=== PATIENT | female | born 1950 | race Caucasian/White ===

== ENCOUNTER 2022-05-11 13:30 | Outpatient (RCR) | payer MEDICARE, SELFPAY ==
--- NOTE | 2022-05-04 15:57 | PCM.WC.HP ---
History of Present Illness Date of Service: 05/04/22 Chief Complaint: Non-healing ulcer on left anterior leg History of Wound: Patient is a 71-year-old female who presents today with a left anterior leg ulcer that she acquired in December when she hit her leg on a pallet. She showed it to her primary care a month or 2 later and was told that it would heal eventually. Her prior authorization nurse thought couple weeks ago and thought it looked infected and placed her on an antibiotic, which she has completed, but does not know what the antibiotic was. She has been putting antibiotic ointment on it periodically and occasionally lets it scab over. 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 History of throat surgery, not thyroid. She denies any fever, chills, nausea, or vomiting. She states she has a good appetite. Progress of Wound: Left anterior leg ulcer is small but has some depth to it. [facility] Medical History (Reviewed 05/04/22 @ 16:24 by Yarelis Cavanaugh FELLMONGERING MACHINE OPERATOR, FELLMONGERING MACHINE OPERATOR-C) Gallbladder abscess Home Medications Trulicity 4.5 mg/0.5 mL subcutaneous pen injector (dulaglutide) 4.5 mg (0.5 mL) subcut QWEEK #2 mL 04/27/22 [Rx Last Taken Unknown] carvedilol 25 mg tablet mg PO 04/27/22 [History Last Taken Unknown] duloxetine 30 mg capsule,delayed release 90 mg PO 04/27/22 [History Last Taken Unknown] flash glucose scanning reader (FreeStyle Xena 2 [place]) #1 ea 04/27/22 [Rx Last Taken Unknown] flash glucose sensor (FreeStyle Xena 2 Sensor kit) #2 ea 04/27/22 [Rx Last Taken Unknown] insulin aspart U-100 100 unit/mL (3 mL) subcutaneous pen (Novolog Flexpen U-100 Insulin aspart) 1 sliding scale dose subcut USEASDIRECTD 04/27/22 [History Last Taken Unknown] insulin glargine 100 unit/mL (3 mL) subcutaneous pen (Lantus Solostar U-100 Insulin) unit subcut 04/27/22 [History Last Taken Unknown] meloxicam 7.5 mg tablet mg PO 04/27/22 [History Last Taken Unknown] ropinirole 1 mg tablet mg PO 04/27/22 [History Last Taken Unknown] simvastatin 5 mg tablet 5 mg PO DAILY 04/27/22 [History Last Taken Unknown] spironolactone 50 mg tablet mg PO 04/27/22 [History Last Taken Unknown] Allergy/AdvReac Type Severity Reaction Status Date / Time Penicillins Allergy Intermediate Swelling Verified 04/27/22 09:05 hydromorphone [From Dilaudid] AdvReac Severe Other Verified 04/27/22 09:05 acetaminophen [From Vicodin] AdvReac Intermediate Vomiting Verified 04/27/22 09:05 ciprofloxacin [From Cipro] AdvReac Intermediate headache Verified 04/27/22 09:05 hydrocodone [From Vicodin] AdvReac Intermediate Vomiting Verified 04/27/22 09:05 Family History (Reviewed 05/04/22 @ 16:24 by Yarelis Cavanaugh FELLMONGERING MACHINE OPERATOR, FELLMONGERING MACHINE OPERATOR-C) Other Alcohol abuse Arthritis Cancer Diabetes Heart disease Hypertension Surgical History (Reviewed 05/04/22 @ 16:24 by Yarelis Cavanaugh FELLMONGERING MACHINE OPERATOR, FELLMONGERING MACHINE OPERATOR-C) H/O knee surgery H/O tubal ligation History of arthroscopic knee surgery History of left shoulder replacement Previous back surgery Social History (Reviewed 05/04/22 @ 16:24 by Yarelis Cavanaugh FELLMONGERING MACHINE OPERATOR, FELLMONGERING MACHINE OPERATOR-C) Smoking Status: Former smoker alcohol intake: current alcohol intake frequency: 0-2 drinks per day substance use type: does not use what type of physical activity do you participate in: none ROS Constitutional Constitutional: Reports weight loss; Denies fever(s) or frequent falls Eyes Eyes: Reports none ENT HEENT: Reports systems reviewed and no addt'l complaints, except as documented Cardiovascular Cardiovascular: Denies chest pain or dyspnea Respiratory/Chest Respiratory/Chest: Denies cough or dyspnea Gastrointestinal Gastrointestinal: Reports none Musculoskeletal Musculoskeletal: Reports none Integumentary Integumentary: Reports skin ulcer Neurologic Neurologic: Reports systems reviewed and no addt'l complaints, except as documented Psychiatric Psychiatric: Reports systems reviewed and no addt'l complaints, except as documented Endocrine Endocrinology: Reports none Allergic/Immunologic Allergic/Immunologic: Reports none Physical Exam Const alert General Appearance: cooperative HEENT normocephalic Eyes PERRL Resp normal respiratory effort and clear to auscultation bilaterally Effort and Inspection: able to speak in complete sentences Cardio regular rate and regular rhythm Peripheral Pulses: dorsalis pedis pulses present bilateral 2+ GI soft to palpation and non-tender Extremity normal capillary refill Skin Skin Narrative: +2 edema bilateral legs Neuro oriented x3 Psych thought process normal and cooperative Debridement Note Debridement Note Wound debrided: anterior leg ulcer Laterality: Left Type of Debridement: Excisional debridement Anesthesia Used: 5% Lidocaine Gel Depth: Down to and including healthy tissue and in the subcutaneous layer Percentage of wound debrided: 100 Instrument Used: 3mm curette Severity: Fat Layer Exposed Amount of bleeding with debridement: Mild Bleeding Controlled with: Compression and gauze Patient tolerated procedure: Patient tolerated procedure well Post-Debridement Measurements and Additional Note: Post-Debridement Measurements/Treatment HAZEL - Nurse 1 - General Ulcer Assessment Start: 05/04/22 13:01 Freq: Status: Active Protocol: AJ Activity Type Activity Date Activity User E-sign Co-sign Detail Recorded Client Recorded Date Recorded By Document 05/04/22 13:02 MARILY [id number] 05/04/22 13:18 MARILY 05/04/22 13:02 HAZEL - Today's Visit Information Type of service Initial Visit Arrival Mode Ambulatory Patient Identification Verified (Name & Yes ) Patient Requires Transmission-Based No Precautions Safety Precautions NA Pain Scale: 0-10 Numeric Is Patient Pain Free? Yes HAZEL - Nurse 1 - General Ulcer Measurement Start: 05/04/22 13:01 Freq: Status: Active Protocol: Activity Type Activity Date Activity User E-sign Co-sign Detail Recorded Client Recorded Date Recorded By Document 05/04/22 13:02 MARILY [id number] 05/04/22 13:18 MARILY 05/04/22 13:02 Wound Center Nurse 1 #1L adam -Combined with other wound No -Current Size (cm) - Length 0.3 -Current Size (cm) - Width 1 -Current Size (cm) - Depth 0.2 -Total Square Cm 0.3 -Date of Last Picture (Recall this 05/04/22 field) -Photo Taken Yes -Tunneling No -Undermining/Tunneling No -Circular Undermining No -Change in Wound Grade/Stage No -Exudate Amt Medium -Exudate Type Serosanguineous -Wound Margin Distinct, Outline Attached -Granulation Amt None Present (0 %) -Granulation Quality N/A -Slough/Fibrin No -Necrosis Amt Large (67-100%) -Necrotic Tissue Type Adherent Slough -Structure Exposed N/A -Texture (Rachel-wound Skin Appearance) No Abnormality, Assessed -Moisture (Rachel-wound Skin Appearance) No Abnormality, Assessed -Color (Rachel-wound Skin Appearance) No Abnormality, Assessed -Temperature (Rachel-wound Skin No Abnormality Appearance) (Pt Warm) -Tenderness on Palpation (Rachel-wound No Skin Appearance) -Ulcer Cleansing Soap and Water -Foul Odor after Cleansing No -Anesthetic Used 5% Lidocaine Gel Lower Limb Edema Present No Right Calf (cm) 54 Right Ankle (cm) 30 Point of measurement (cm from the medial 53 instep) Left Ankle (cm) 32 WC - Nurse 2 - General Ulcer CM Notes Start: 05/04/22 13:01 Freq: Status: Active Protocol: Activity Type Activity Date Activity User E-sign Co-sign Detail Recorded Client Recorded Date Recorded By Document 05/04/22 13:43 MW [id number] 05/04/22 13:52 MW 05/04/22 13:43 Wound Center Nurse 2 #1L adam -Time 13:44 -Correct Patient Yes -Correct Side, Site, Position Yes -Correct Procedure Yes -Procedure Performed Yes -Type of Procedure Debridement -Clinical Debridement Subcutaneous -Tissue Removed Subcutaneous -Post Debridement (cm) - Length 0.6 -Post Debridement (cm) - Width 1.0 -Post Debridement (cm) - Depth 1.2 -Total Square (Post) (cm) 0.60 -Area of Debridement (cm) - Length 0.6 -Area of Debridement (cm) - Width 1.0 -Total Square (Area) (cm) 0.60 -Tunneling No -Undermining/Tunneling No -Circular Undermining No -Wound/Ulcer Outcome Not Healed -Ulcer Cleansing Rinsed/ Irrigated with Saline -Foul Odor after Cleansing No -Bioengineered Tissue No -Bleeding Controlled with Pressure -Treatment Response Procedure Tolerated Well -Offloading No -Debridement - Subq, 1st 20sq cm Yes Pain Scale: 0-10 Numeric Is Patient Pain Free? Yes HAZEL - Nurse 3 - General Ulcer D/C NN Start: 05/04/22 13:01 Freq: Status: Active Protocol: Activity Type Activity Date Activity User E-sign Co-sign Detail Recorded Client Recorded Date Recorded By Document 05/04/22 14:02 MW [id number] 05/04/22 14:03 MW 05/04/22 14:02 Wound Care Nurse 3 #1L adam -Ulcer Cleansing Rinsed/ Irrigated with Saline -Foul Odor after Cleansing No -Negative Pressure Wound Therapy N/A -Primary Dressing Applied Promogran Leora Matter -Primary Dressing Covered/Secured with Dry Gauze, Secured with Tape -Promogran Leora Matter 1 Left -Lotion applied to leg before No compression wrap -Tubular Bandage Single Layer -Size of Tubigrip Used Size F -Size F ($) 1 Treatment Response Procedure Tolerated Well Pain Scale: 0-10 Numeric Is Patient Pain Free? Yes Teaching: Wound Center Dressing Your Wound -Person Taught Patient -Teaching Method Discussion, Demonstration -Response to teaching Verbalize understanding WC - Visit Discharge Discharge Condition Stable Ambulatory Status Ambulatory Transportation Private Auto Accompanied by SELF Medication Reconcilliation completed & No provided to patient/care provider Clinical Summary of Care Provided Yes Charges/Coding Visit Charges Office Visits / Consults: 54986 OV L4 Est (25 modifier) Procedures Integumentary 111xxx-113xx: 55153 Mary subq tissue 20 sq cm/< Assessment/Plan Assessment/Plan (1) Non-healing ulcer of lower leg with fat layer exposed: CODE(S): L97.902 - Non-pressure chronic ulcer of unspecified part of unspecified lower leg with fat layer exposed (2) Diabetic ulcer of left lower leg: CODE(S): E11.622 - Type 2 diabetes mellitus with other skin ulcer; L97.929 - Non-pressure chronic ulcer of unspecified part of left lower leg with unspecified severity (3) Diabetes mellitus: CODE(S): E11.9 - Type 2 diabetes mellitus without complications (4) Anticoagulant long-term use: CODE(S): Z79.01 - termite inspector (current) use of anticoagulants PLAN: Plan Patient was evaluated at the wound center today. Subcutaneous debridement was performed as documented. Her wound care will be moistened Leora packed into the ulcer top with gauze daily. She is to wash her leg with soap and water at the time of the dressing change. Compression will be a single layer Tubigrip. Will perform YOLA next week. Then we will be able to determine the proper compression for her. Follow-up in 1 week.
[2022-05-11 14:04] VITALS: BP 137/89; PULSE 69; TEMP 36.4
--- NOTE | 2022-05-11 16:07 | PN.PCM_ITS ---
History of Present Illness Date of Service: 05/11/22 Chief Complaint: Non-healing ulcer on left anterior leg History of Wound: Patient is a 71-year-old female who presents today with a left anterior leg ulcer that she acquired in December when she hit her leg on a pallet. She showed it to her primary care a month or 2 later and was told that it would heal eventually. Her maple sugar maker thought couple weeks ago and thought it looked infected and placed her on an antibiotic, which she has completed, but does not know what the antibiotic was. She has been putting antibiotic ointment on it periodically and occasionally lets it scab over. 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 History of throat surgery, not thyroid. Wound care to left anterior leg is moistened Leora covered with gauze. Compression is a single tubigrip. YOLA obtained 05/11/22 - Right - 0.875, Left - 0.821. Wound culture obtained 05/05/22 and was positive for Staphylococcus pseudinter mediu (resistant) and Staphylococcus aureus which are both sensitive Levofloxacin. She denies any fever, chills, nausea, or vomiting. She states she has a good appetite. Progress of Wound: Left anterior leg ulcer is small but has some depth to it. Objective Data Objective Data Vital Signs: Vital Signs Temp Pulse BP 97.5 F L 69 137/89 H 05/11/22 14:04 05/11/22 14:04 05/11/22 14:04 Lab / Micro Data Micro: Microbiology 05/04/22 13:50 Wound Abcess - Leg, Left Gram Stain - Final 05/04/22 13:50 Wound Abcess - Leg, Left Wound Culture - Final Staphylococcus pseudintermediu Staphylococcus aureus 05/04/22 13:50 Wound Abcess - Leg, Left Anaerobic Culture - Final No anaerobic bacteria isolated. Charges/Coding Procedures Integumentary 111xxx-113xx: 83763 Mary subq tissue 20 sq cm/< Physical Exam Const alert General Appearance: cooperative HEENT normocephalic Resp normal respiratory effort Effort and Inspection: able to speak in complete sentences Cardio regular rate Peripheral Pulses: dorsalis pedis pulses present bilateral 2+ Extremity normal capillary refill Skin Skin Narrative: +2 edema bilateral legs Wound Narrative: Left anterior leg ulcer is pink and smaller in size. Neuro oriented x3 Psych thought process normal and cooperative Debridement Note Debridement Note Wound debrided: anterior leg ulcer Laterality: Left Type of Debridement: Excisional debridement Anesthesia Used: 5% Lidocaine Gel Depth: Down to and including healthy tissue and in the subcutaneous layer Percentage of wound debrided: 100 Instrument Used: 3mm curette Severity: Fat Layer Exposed Amount of bleeding with debridement: Mild Bleeding Controlled with: Compression and gauze Patient tolerated procedure: Patient tolerated procedure well Post-Debridement Measurements and Additional Note: Post-Debridement Measurements/Treatment - Nurse 1 - General Ulcer Assessment Start: 05/04/22 13:01 Freq: Status: Active Protocol: JA Activity Type Activity Date Activity User E-sign Co-sign Detail Recorded Client Recorded Date Recorded By Document 05/04/22 13:02 MARILY [id number] 05/04/22 13:18 AK Document 05/11/22 14:04 MARILY [id number] 05/11/22 14:10 [place] 05/04/22 05/11/22 13:02 14:04 - Today's Visit Information Type of service Initial Visit Arrival Mode Ambulatory Patient Identification Verified (Name & Yes ) Patient Requires Transmission-Based No Precautions Safety Precautions NA Vital Signs Temperature (97.8 F-99.1 F) 97.5 F L Temperature Source Temporal Pulse Rate (60-100) 69 Pulse Location Monitor Blood Pressure (90/60-120/80) 137/89 H Blood Pressure Mean (mm Hg) 105 Source Monitor History Since Last Visit- (Skip if this is Patient's initial visit) Have you changed medications since your No last visit? Any new allergies or adverse reactions No Had a fall/change in ADL's that may No increase risk of falls Signs or symptoms of abuse and/or No neglect since last visit Have you been in the hospital since your No last visit? Has dressing in place as prescribed Yes Has compression in place as prescribed N/A Has offloadiing in place as prescribed N/A Experienced any changes in pain level or No management Left Footwear Slipper Right Footwear Slipper Pain Scale: 0-10 Numeric Is Patient Pain Free? Yes Yes Hollie Nurse 1 - General Ulcer Measurement Start: 05/04/22 13:01 Freq: Status: Active Protocol: Activity Type Activity Date Activity User E-sign Co-sign Detail Recorded Client Recorded Date Recorded By Document 05/04/22 13:02 [place] [id number] 05/04/22 13:18 AK Document 05/11/22 14:04 [place] [id number] 05/11/22 14:10 [place] 05/04/22 05/11/22 13:02 14:04 Wound Center Nurse 1 #1L adam -Combined with other wound No No -Current Size (cm) - Length 0.3 0.2 -Current Size (cm) - Width 1 0.8 -Current Size (cm) - Depth 0.2 0.2 -Total Square Cm 0.3 0.16 -Date of Last Picture (Recall this 05/04/22 field) -Photo Taken Yes No -Tunneling No No -Undermining/Tunneling No No -Circular Undermining No No -Change in Wound Grade/Stage No No -Exudate Amt Medium Small -Exudate Type Serosanguineous Serosanguineous -Wound Margin Distinct, Distinct, Outline Outline Attached Attached -Granulation Amt None Present (0 Small (1-33%) %) -Granulation Quality N/A N/A -Slough/Fibrin No Yes -Necrosis Amt Large (67-100%) Large (67-100%) -Necrotic Tissue Type Adherent Slough Adherent Slough -Structure Exposed N/A N/A -Texture (Rachel-wound Skin Appearance) No Abnormality, No Abnormality, Assessed Assessed -Moisture (Rachel-wound Skin Appearance) No Abnormality, No Abnormality, Assessed Assessed -Color (Rachel-wound Skin Appearance) No Abnormality, No Abnormality, Assessed Assessed -Temperature (Rachel-wound Skin No Abnormality No Abnormality Appearance) (Pt Warm) (Pt Warm) -Tenderness on Palpation (Rachel-wound No No Skin Appearance) -Ulcer Cleansing Soap and Water Soap and Water -Foul Odor after Cleansing No No -Anesthetic Used 5% Lidocaine 5% Lidocaine Gel Gel Lower Limb Edema Present No Right Calf (cm) 54 Right Ankle (cm) 30 Point of measurement (cm from the medial 53 instep) Left Ankle (cm) 32 WC - Nurse 2 - General Ulcer CM Notes Start: 05/04/22 13:01 Freq: Status: Active Protocol: Activity Type Activity Date Activity User E-sign Co-sign Detail Recorded Client Recorded Date Recorded By Document 05/04/22 13:43 MW [id number] 05/04/22 13:52 MW Document 05/11/22 14:28 MW [id number] 05/11/22 14:33 MW 05/04/22 05/11/22 13:43 14:28 Wound Center Nurse 2 #1L adam -Time 13:44 14:29 -Correct Patient Yes Yes -Correct Side, Site, Position Yes Yes -Correct Procedure Yes Yes -Procedure Performed Yes Yes -Type of Procedure Debridement Debridement -Clinical Debridement Subcutaneous Subcutaneous -Tissue Removed Subcutaneous Subcutaneous -Post Debridement (cm) - Length 0.6 0.5 -Post Debridement (cm) - Width 1.0 1.0 -Post Debridement (cm) - Depth 1.2 0.8 -Total Square (Post) (cm) 0.60 0.50 -Area of Debridement (cm) - Length 0.6 0.5 -Area of Debridement (cm) - Width 1.0 1.0 -Total Square (Area) (cm) 0.60 0.50 -Tunneling No No -Undermining/Tunneling No No -Circular Undermining No No -Wound/Ulcer Outcome Not Healed Not Healed -Ulcer Cleansing Rinsed/ Rinsed/ Irrigated with Irrigated with Saline Saline -Foul Odor after Cleansing No No -Bioengineered Tissue No No -Bleeding Controlled with Pressure Pressure -Treatment Response Procedure Procedure Tolerated Well Tolerated Well -Offloading No No -Debridement - Subq, 1st 20sq cm Yes Yes Pain Scale: 0-10 Numeric Is Patient Pain Free? Yes Yes WC - Nurse 3 - General Ulcer D/C NN Start: 05/04/22 13:01 Freq: Status: Active Protocol: Activity Type Activity Date Activity User E-sign Co-sign Detail Recorded Client Recorded Date Recorded By Document 05/04/22 14:02 [id number] 05/04/22 14:03 MW Document 05/11/22 14:41 [facility] [id number] 05/11/22 14:42 [facility] 05/04/22 05/11/22 14:02 14:41 Wound Care Nurse 3 #1L adam -Ulcer Cleansing Rinsed/ Rinsed/ Irrigated with Irrigated with Saline Saline -Foul Odor after Cleansing No No -Negative Pressure Wound Therapy N/A -Primary Dressing Applied Promogran Promogran Leora Matter -Primary Dressing Covered/Secured with Dry Gauze, Dry Gauze, Secured with Secured with Tape Tape -Promogran 2 -Promogran Leora Matter 1 Left -Lotion applied to leg before No compression wrap -Tubular Bandage Single Layer Single Layer -Size of Tubigrip Used Size F Size F -Size F ($) 1 2 -Other EXTRA TUBI SENT Treatment Response Procedure Procedure Tolerated Well Tolerated Well Pain Scale: 0-10 Numeric Is Patient Pain Free? Yes Yes Teaching: Wound Center Dressing Your Wound -Person Taught Patient -Teaching Method Discussion, Demonstration -Response to teaching Verbalize understanding WC - Visit Discharge Discharge Condition Stable Stable Ambulatory Status Ambulatory Ambulatory Transportation Private Auto Private Auto Accompanied by SELF Medication Reconcilliation completed & No provided to patient/care provider Clinical Summary of Care Provided Yes Assessment/Plan Assessment/Plan (1) Non-healing ulcer of lower leg with fat layer exposed: CODE(S): L97.902 - Non-pressure chronic ulcer of unspecified part of unspecified lower leg with fat layer exposed (2) Diabetic ulcer of left lower leg: CODE(S): E11.622 - Type 2 diabetes mellitus with other skin ulcer; L97.929 - Non-pressure chronic ulcer of unspecified part of left lower leg with unspecified severity (3) Diabetes mellitus: CODE(S): E11.9 - Type 2 diabetes mellitus without complications (4) Anticoagulant long-term use: CODE(S): Z79.01 - emt intermediate (current) use of anticoagulants PLAN: Plan Patient was evaluated at the wound center today. Subcutaneous debridement was performed as documented. Her wound care will be moistened Leora packed into the ulcer top with gauze daily. She is to wash her leg with soap and water at the time of the dressing change. Compression will be a single layer Tubigrip. Wound culture obtained 05/05/22 and was positive for Staphylococcus pseudintermediu (resistant) and Staphylococcus aureus which are both sensitive Levofloxacin. Follow-up in 1 week.
== END 2022-05-11 23:59 | disposition home or self-care (01) ==
LOC: WC 13:30
PROVIDERS: PCP Family Medicine; Visit Provider Nurse Practitioner Family
DX: E11.622 Type 2 diabetes mellitus with other skin ulcer (principal); L97.822 Non-pressure chronic ulcer of other part of left lower leg with fat layer exposed; Z79.4 Long term (current) use of insulin; Z79.899 Other long term (current) drug therapy; Z87.891 Personal history of nicotine dependence; Z86.711 Personal history of pulmonary embolism; Z79.01 Long term (current) use of anticoagulants
CPT/HCPCS: 11042; 87070; 87075; 87077; 87186; 87205; 99213; G0463

== ENCOUNTER 2022-06-08 11:30 | Outpatient (RCR) | payer MEDICARE, SELFPAY ==
[2022-05-12 00:48] VITALS: BP 137/89; PULSE 69; TEMP 36.4
[2022-05-19 13:44] VITALS: TEMP 36.1
[2022-05-19 13:47] VITALS: BP 121/67
--- NOTE | 2022-05-19 15:01 | PCM.WC.PN ---
History of Present Illness Date of Service: 05/19/22 Chief Complaint: Non-healing ulcer on left anterior leg History of Wound: Patient is a 71-year-old female who presents today with a left anterior leg ulcer that she acquired in December when she hit her leg on a pallet. She showed it to her primary care a month or 2 later and was told that it would heal eventually. Her travel registered nurse oncology thought couple weeks ago and thought it looked infected and placed her on an antibiotic, which she has completed, but does not know what the antibiotic was. She has been putting antibiotic ointment on it periodically and occasionally lets it scab over. 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 History of throat surgery, not thyroid. Wound care to left anterior leg is moistened Leora covered with gauze. Compression is a single tubigrip. YOLA obtained 05/11/22 - Right - 0.875, Left - 0.821. Wound culture obtained 05/05/22 and was positive for Staphylococcus pseudintermediu (resistant) and Staphylococcus aureus which are both sensitive Levofloxacin. She denies any fever, chills, nausea, or vomiting. She states she has a good appetite. Progress of Wound: Left anterior leg ulcer is small but has some depth to it. Objective Data Objective Data Vital Signs: Vital Signs Temp Pulse BP 97.0 F L 69 121/67 H 05/19/22 13:44 05/12/22 00:48 05/19/22 13:47 Charges/Coding Procedures Integumentary 111xxx-113xx: [id number] Mary subq tissue 20 sq cm/< Physical Exam Const alert General Appearance: cooperative HEENT normocephalic Resp normal respiratory effort Effort and Inspection: able to speak in complete sentences Cardio regular rate Peripheral Pulses: dorsalis pedis pulses present bilateral 2+ Extremity normal capillary refill Skin Skin Narrative: +2 edema bilateral legs Wound Narrative: Left anterior leg ulcer is pink and smaller in size. Neuro oriented x3 Psych thought process normal and cooperative Debridement Note Debridement Note Wound debrided: anterior leg ulcer Laterality: Left Type of Debridement: Excisional debridement Anesthesia Used: 5% Lidocaine Gel Depth: Down to and including healthy tissue and in the subcutaneous layer Percentage of wound debrided: 100 Instrument Used: 3mm curette Severity: Fat Layer Exposed Amount of bleeding with debridement: Mild Bleeding Controlled with: Compression and gauze Patient tolerated procedure: Patient tolerated procedure well Post-Debridement Measurements and Additional Note: Post-Debridement Measurements/Treatment - Nurse 1 - General Ulcer Assessment Start: 05/19/22 13:44 Freq: Status: Active Protocol: AJ Activity Type Activity Date Activity User E-sign Co-sign Detail Recorded Client Recorded Date Recorded By Document 05/19/22 13:44 SKIP [id number] 05/19/22 13:46 KR Document 05/19/22 13:47 KR [id number] 05/19/22 13:47 KR 05/19/22 05/19/22 13:44 13:47 - Today's Visit Information Type of service Follow-up Visit (Physician/DIRECTOR OF OUTPATIENT SERVICES ) Arrival Mode Ambulatory Patient Identification Verified (Name & Yes ) Vital Signs Temperature (97.8 F-99.1 F) 97.0 F L Temperature Source Temporal Pulse Location Monitor Blood Pressure (90/60-120/80) 121/67 H Blood Pressure Mean (mm Hg) 85 Source Monitor Monitor Position Sitting Semi-Fowlers Blood Pressure Location Right Arm Right Arm History Since Last Visit- (Skip if this is Patient's initial visit) Have you changed medications since your No last visit? Any new allergies or adverse reactions No Had a fall/change in ADL's that may No increase risk of falls Signs or symptoms of abuse and/or No neglect since last visit Have you been in the hospital since your No last visit? Has dressing in place as prescribed Yes Has compression in place as prescribed N/A Has offloadiing in place as prescribed N/A Experienced any changes in pain level or No management Left Footwear Regular Shoe Right Footwear Regular Shoe Pain Scale: 0-10 Numeric Is Patient Pain Free? Yes Yes - Nurse 1 - General Ulcer Measurement Start: 05/19/22 13:44 Freq: Status: Active Protocol: Activity Type Activity Date Activity User E-sign Co-sign Detail Recorded Client Recorded Date Recorded By Document 05/19/22 13:44 SKIP [id number] 05/19/22 13:46 KR 05/19/22 13:44 Wound Center Nurse 1 #1L adam -Current Size (cm) - Length 0.7 -Current Size (cm) - Width 0.2 -Current Size (cm) - Depth 0.1 -Total Square Cm 0.14 -Exudate Amt Small -Exudate Type Serosanguineous -Granulation Amt None Present (0 %) -Necrosis Amt None Present (0 %) -Texture (Rachel-wound Skin Appearance) Assessed, Scarring -Moisture (Rachel-wound Skin Appearance) Assessed,Dry/ Scaly -Color (Rachel-wound Skin Appearance) No Abnormality, Assessed -Temperature (Rachel-wound Skin No Abnormality Appearance) (Pt Warm) -Ulcer Cleansing Rinsed/ Irrigated with Saline -Foul Odor after Cleansing No -Anesthetic Used 5% Lidocaine Gel WC - Nurse 2 - General Ulcer CM Notes Start: 05/19/22 13:44 Freq: Status: Active Protocol: Activity Type Activity Date Activity User E-sign Co-sign Detail Recorded Client Recorded Date Recorded By Document 05/19/22 13:58 MW [id number] 05/19/22 14:01 MW 05/19/22 13:58 Wound Center Nurse 2 -Time 13:59 -Correct Patient Yes -Correct Side, Site, Position Yes -Correct Procedure Yes -Procedure Performed Yes -Type of Procedure Debridement -Clinical Debridement Subcutaneous -Tissue Removed Subcutaneous -Post Debridement (cm) - Length 0.3 -Post Debridement (cm) - Width 0.7 -Post Debridement (cm) - Depth 0.7 -Total Square (Post) (cm) 0.21 -Area of Debridement (cm) - Length 0.3 -Area of Debridement (cm) - Width 0.7 -Total Square (Area) (cm) 0.21 -Tunneling No -Undermining/Tunneling No -Circular Undermining No -Wound/Ulcer Outcome Not Healed -Ulcer Cleansing Rinsed/ Irrigated with Saline -Foul Odor after Cleansing No -Bioengineered Tissue No -Bleeding Controlled with Pressure -Treatment Response Procedure Tolerated Well -Offloading No -Debridement - Subq, 1st 20sq cm Yes Pain Scale: 0-10 Numeric Is Patient Pain Free? Yes HAZEL - Nurse 3 - General Ulcer D/C NN Start: 05/19/22 13:44 Freq: Status: Active Protocol: Activity Type Activity Date Activity User E-sign Co-sign Detail Recorded Client Recorded Date Recorded By Document 05/19/22 14:04 [facility] [id number] 05/19/22 14:05 [facility] 05/19/22 14:04 Wound Care Nurse 3 #1L adam -Ulcer Cleansing Rinsed/ Irrigated with Saline -Foul Odor after Cleansing No -Primary Dressing Applied Promogran Leora Matter -Primary Dressing Covered/Secured with Dry Gauze, Secured with Tape -Other Covering TUBIGRIP -Promogran Leora Matter 1 Treatment Response Procedure Tolerated Well Pain Scale: 0-10 Numeric Is Patient Pain Free? Yes WC - Visit Discharge Discharge Condition Stable Ambulatory Status Ambulatory Transportation Private Auto Assessment/Plan Assessment/Plan (1) Non-healing ulcer of lower leg with fat layer exposed: CODE(S): L97.902 - Non-pressure chronic ulcer of unspecified part of unspecified lower leg with fat layer exposed (2) Diabetic ulcer of left lower leg: CODE(S): E11.622 - Type 2 diabetes mellitus with other skin ulcer; L97.929 - Non-pressure chronic ulcer of unspecified part of left lower leg with unspecified severity (3) Diabetes mellitus: CODE(S): E11.9 - Type 2 diabetes mellitus without complications (4) Anticoagulant long-term use: CODE(S): Z79.01 - termite helper (current) use of anticoagulants PLAN: Plan Patient was evaluated at the wound center today. Subcutaneous debridement was performed as documented. Her wound care will be moistened Leora packed into the ulcer top with gauze daily. She is to wash her leg with soap and water at the time of the dressing change. Compression will be a single layer Tubigrip. Wound culture obtained 05/05/22 and was positive for Staphylococcus pseudintermediu (resistant) and Staphylococcus aureus which are both sensitive Levofloxacin. Follow-up in 2 weeks.
[2022-06-01 10:51] VITALS: BP 122/52; PULSE 73; RESP 20; TEMP 36.4
--- NOTE | 2022-06-01 13:01 | PN.PCM_ITS ---
History of Present Illness Date of Service: 06/01/22 Chief Complaint: Non-healing ulcer on left anterior leg History of Wound: Patient is a 71-year-old female who presents today with a left anterior leg ulcer that she acquired in December when she hit her leg on a pallet. She showed it to her primary care a month or 2 later and was told that it would heal eventually. Her appeals coordinator thought couple weeks ago and thought it looked infected and placed her on an antibiotic, which she has completed, but does not know what the antibiotic was. She has been putting antibiotic ointment on it periodically and occasionally lets it scab over. 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 History of throat surgery, not thyroid. Wound care to left anterior leg is moistened Leora covered with gauze. Compression is a single tubigrip. YOLA obtained 05/11/22 - Right - 0.875, Left - 0.821. Wound culture obtained 05/05/22 and was positive for Staphylococcus pseudinter mediu (resistant) and Staphylococcus aureus which are both sensitive Levofloxacin. She denies any fever, chills, nausea, or vomiting. She states she has a good appetite. Progress of Wound: Left anterior leg ulcer is larger today. She has not been wearing her compression. Her legs have +3 pitting edema. Objective Data Objective Data Vital Signs: Vital Signs Temp Pulse Resp BP 97.5 F L 73 20 H 122/52 H 06/01/22 10:51 06/01/22 10:51 06/01/22 10:51 06/01/22 10:51 Charges/Coding Procedures Integumentary 111xxx-113xx: 71440 Mary subq tissue 20 sq cm/< Physical Exam Const alert General Appearance: cooperative HEENT normocephalic Resp normal respiratory effort Effort and Inspection: able to speak in complete sentences Cardio regular rate Peripheral Pulses: dorsalis pedis pulses present bilateral 2+ Extremity normal capillary refill Skin Skin Narrative: +3 edema bilateral legs Wound Narrative: Left anterior leg ulcer is pink and smaller in size. Neuro oriented x3 Psych thought process normal and cooperative Debridement Note Debridement Note Wound debrided: anterior leg ulcer Laterality: Left Type of Debridement: Excisional debridement Anesthesia Used: 5% Lidocaine Gel Depth: Down to and including healthy tissue and in the subcutaneous layer Percentage of wound debrided: 100 Instrument Used: 3mm curette Severity: Fat Layer Exposed Amount of bleeding with debridement: Mild Bleeding Controlled with: Compression and gauze Patient tolerated procedure: Patient tolerated procedure well Post-Debridement Measurements and Additional Note: Post-Debridement Measurements/Treatment HAZEL - Nurse 1 - General Ulcer Assessment Start: 05/19/22 13:44 Freq: Status: Active Protocol: AJ Activity Type Activity Date Activity User E-sign Co-sign Detail Recorded Client Recorded Date Recorded By Document 05/19/22 13:44 KR [id number] 05/19/22 13:46 KR Document 05/19/22 13:47 KR [id number] 05/19/22 13:47 KR Document 06/01/22 10:51 DL [id number] 06/01/22 10:58 DL 05/19/22 05/19/22 06/01/22 13:44 13:47 10:51 - Today's Visit Information Type of service Follow-up Visit Follow-up Visit (Physician/TANK HOUSE SUPERVISOR (Physician/TANK HOUSE SUPERVISOR ) ) Arrival Mode Ambulatory Ambulatory Patient Identification Verified (Name & Yes ) Finger Stick Blood Sugar(mg/dl) (if not checked indicated): Blood Sugar Stated by Patient Vital Signs Temperature (97.8 F-99.1 F) 97.0 F L 97.5 F L Temperature Source Temporal Temporal Pulse Rate (60-100) 73 Pulse Location Monitor Monitor Respiratory Rate (12-18) 20 H Respiratory rate source Observation Blood Pressure (90/60-120/80) 121/67 H 122/52 H Blood Pressure Mean (mm Hg) 85 75 Source Monitor Monitor Monitor Position Sitting Semi-Fowlers Blood Pressure Location Right Arm Right Arm History Since Last Visit- (Skip if this is Patient's initial visit) Have you changed medications since your No No last visit? Any new allergies or adverse reactions No No Had a fall/change in ADL's that may No No increase risk of falls Signs or symptoms of abuse and/or No No neglect since last visit Have you been in the hospital since your No No last visit? Has dressing in place as prescribed Yes No Has compression in place as prescribed N/A No Has offloadiing in place as prescribed N/A No Experienced any changes in pain level or No No management Left Footwear Regular Shoe Right Footwear Regular Shoe Pain Scale: 0-10 Numeric Is Patient Pain Free? Yes Yes Yes WC - Nurse 1 - General Ulcer Measurement Start: 05/19/22 13:44 Freq: Status: Active Protocol: Activity Type Activity Date Activity User E-sign Co-sign Detail Recorded Client Recorded Date Recorded By Document 05/19/22 13:44 KR [id number] 05/19/22 13:46 KR Document 06/01/22 10:51 DL [id number] 06/01/22 10:58 DL 05/19/22 06/01/22 13:44 10:51 Wound Center Nurse 1 #1L adam -Current Size (cm) - Length 0.7 0.3 -Current Size (cm) - Width 0.2 0.8 -Current Size (cm) - Depth 0.1 0.3 -Total Square Cm 0.14 0.24 -Photo Taken No -Undermining/Tunneling Starts (O'clock 5 ) -Undermining/Tunneling Ends (O'clock) 6 -Maximum Distance (cm) 0.3 -Exudate Amt Small None Present -Exudate Type Serosanguineous -Wound Margin Distinct, Outline Attached -Granulation Amt None Present (0 Small (1-33%) %) -Granulation Quality [place] -Necrosis Amt None Present (0 Small (1-33%) %) -Necrotic Tissue Type Adherent Slough -Structure Exposed N/A -Texture (Rachel-wound Skin Appearance) Assessed, Scarring Scarring -Moisture (Rachel-wound Skin Appearance) Assessed,Dry/ No Abnormality Scaly -Color (Rachel-wound Skin Appearance) No Abnormality, No Abnormality Assessed -Temperature (Rachel-wound Skin No Abnormality No Abnormality Appearance) (Pt Warm) (Pt Warm) -Tenderness on Palpation (Rachel-wound No Skin Appearance) -Ulcer Cleansing Rinsed/ Soap and Water Irrigated with Saline -Foul Odor after Cleansing No No -Anesthetic Used 5% Lidocaine 5% Lidocaine Gel Gel Left Calf (cm) 52 Left Ankle (cm) 30.7 WC - Nurse 2 - General Ulcer CM Notes Start: 05/19/22 13:44 Freq: Status: Active Protocol: Activity Type Activity Date Activity User E-sign Co-sign Detail Recorded Client Recorded Date Recorded By Document 05/19/22 13:58 [id number] 05/19/22 14:01 Document 06/01/22 11:35 [id number] 06/01/22 11:37 05/19/22 06/01/22 13:58 11:35 Wound Center Nurse 2 #1L adam -Time 13:59 11:35 -Correct Patient Yes Yes -Correct Side, Site, Position Yes Yes -Correct Procedure Yes Yes -Procedure Performed Yes Yes -Type of Procedure Debridement Debridement -Clinical Debridement Subcutaneous Subcutaneous -Tissue Removed Subcutaneous Subcutaneous -Post Debridement (cm) - Length 0.3 0.5 -Post Debridement (cm) - Width 0.7 0.9 -Post Debridement (cm) - Depth 0.7 0.4 -Total Square (Post) (cm) 0.21 0.45 -Area of Debridement (cm) - Length 0.3 0.5 -Area of Debridement (cm) - Width 0.7 0.9 -Total Square (Area) (cm) 0.21 0.45 -Tunneling No No -Undermining/Tunneling No No -Circular Undermining No No -Wound/Ulcer Outcome Not Healed Not Healed -Ulcer Cleansing Rinsed/ Rinsed/ Irrigated with Irrigated with Saline Saline -Foul Odor after Cleansing No No -Bioengineered Tissue No No -Bleeding Controlled with Pressure Pressure -Treatment Response Procedure Procedure Tolerated Well Tolerated Well -Offloading No No -Debridement - Subq, 1st 20sq cm Yes Yes Pain Scale: 0-10 Numeric Is Patient Pain Free? Yes Yes - Nurse 3 - General Ulcer D/C NN Start: 05/19/22 13:44 Freq: Status: Active Protocol: Activity Type Activity Date Activity User E-sign Co-sign Detail Recorded Client Recorded Date Recorded By Document 05/19/22 14:04 [facility] [id number] 05/19/22 14:05 [facility] Document 06/01/22 11:53 DL [id number] 06/01/22 11:54 DL 05/19/22 06/01/22 14:04 11:53 Wound Care Nurse 3 #1L adam -Ulcer Cleansing Rinsed/ Rinsed/ Irrigated with Irrigated with Saline Saline -Foul Odor after Cleansing No No -Primary Dressing Applied Promogran Promogran Leora Matter Leora Matter -Primary Dressing Covered/Secured with Dry Gauze, Dry Gauze Secured with Tape -Other Covering TUBIGRIP -Promogran Leora Matter 1 1 Left -Multi-Layered Wrap Application Multi-Layer Comp - Left ($) Treatment Response Procedure Procedure Tolerated Well Tolerated Well Pain Scale: 0-10 Numeric Is Patient Pain Free? Yes Yes WC - Visit Discharge Discharge Condition Stable Stable Ambulatory Status Ambulatory Ambulatory Transportation Private Auto Private Auto Assessment/Plan Assessment/Plan (1) Non-healing ulcer of lower leg with fat layer exposed: CODE(S): L97.902 - Non-pressure chronic ulcer of unspecified part of unspecified lower leg with fat layer exposed (2) Diabetic ulcer of left lower leg: CODE(S): E11.622 - Type 2 diabetes mellitus with other skin ulcer; L97.929 - Non-pressure chronic ulcer of unspecified part of left lower leg with unspecified severity (3) Diabetes mellitus: CODE(S): E11.9 - Type 2 diabetes mellitus without complications (4) Anticoagulant long-term use: CODE(S): Z79.01 - salvage determiner (current) use of anticoagulants PLAN: Plan Patient was evaluated at the wound center today. Subcutaneous debridement was performed as documented. Her wound care will be moistened Leora packed into the ulcer top with gauze. She is to wash her leg with soap and water at the time of the dressing change. Will apply 3M 2 layer wraps. Encouraged patient to sit with legs elevated and to avoid standing for long periods of time. Avoid sleeping in a chair. Wound culture obtained 05/05/22 and was positive for Staphylococcus pseudintermediu (resistant) and Staphylococcus aureus which are both sensitive Levofloxacin. She will come in for a nurses visit Monday. Follow up with me 1 week.
[2022-06-06 11:08] VITALS: BP 132/82; PULSE 72; TEMP 36.1
[2022-06-08 11:43] VITALS: BP 152/80; PULSE 70; RESP 18; TEMP 36.3
--- NOTE | 2022-06-08 12:49 | PCM.WC.PN ---
History of Present Illness Date of Service: 06/08/22 Chief Complaint: Non-healing ulcer on left anterior leg History of Wound: Patient is a 71-year-old female who presents today with a left anterior leg ulcer that she acquired in December when she hit her leg on a pallet. She showed it to her primary care a month or 2 later and was told that it would heal eventually. Her machine adjuster helper thought couple weeks ago and thought it looked infected and placed her on an antibiotic, which she has completed, but does not know what the antibiotic was. She has been putting antibiotic ointment on it periodically and occasionally lets it scab over. 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 History of throat surgery, not thyroid. Wound care to left anterior leg is moistened Leora covered with gauze. Compression will be 3M 2 layer wraps. YOLA obtained 05/11/22 - Right - 0.875, Left - 0.821. Wound culture obtained 05/05/22 and was positive for Staphylococcus pseudintermediu (resistant) and Staphylococcus aureus which are both sensitive Levofloxacin. She denies any fever, chills, nausea, or vomiting. She states she has a good appetite. Progress of Wound: Left anterior leg ulcer is stable. Edema has improved with the 3M 2 layer wraps. Objective Data Objective Data Vital Signs: Vital Signs Temp Pulse Resp BP 97.3 F L 70 18 152/80 H 06/08/22 11:43 06/08/22 11:43 06/08/22 11:43 06/08/22 11:43 Charges/Coding Procedures Integumentary 111xxx-113xx: 40412 Mary subq tissue 20 sq cm/< Physical Exam Const alert General Appearance: cooperative HEENT normocephalic Resp normal respiratory effort Effort and Inspection: able to speak in complete sentences Cardio regular rate Peripheral Pulses: dorsalis pedis pulses present bilateral 2+ Extremity normal capillary refill Skin Skin Narrative: +2 edema bilateral legs Wound Narrative: Left anterior leg ulcer is pink and stable. Neuro oriented x3 Psych thought process normal and cooperative Debridement Note Debridement Note Wound debrided: anterior leg ulcer Laterality: Left Type of Debridement: Excisional debridement Anesthesia Used: 5% Lidocaine Gel Depth: Down to and including healthy tissue and in the subcutaneous layer Percentage of wound debrided: 100 Instrument Used: 3mm curette Severity: Fat Layer Exposed Amount of bleeding with debridement: Mild Bleeding Controlled with: Compression and gauze Patient tolerated procedure: Patient tolerated procedure well Post-Debridement Measurements and Additional Note: Post-Debridement Measurements/Treatment WC - Nurse 1 - General Ulcer Assessment Start: 05/19/22 13:44 Freq: Status: Active Protocol: AJ Activity Type Activity Date Activity User E-sign Co-sign Detail Recorded Client Recorded Date Recorded By Document 05/19/22 13:44 KR [id number] 05/19/22 13:46 KR Document 05/19/22 13:47 KR [id number] 05/19/22 13:47 KR Document 06/01/22 10:51 DL [id number] 06/01/22 10:58 DL Document 06/06/22 11:08 KR [id number] 06/06/22 11:09 KR Document 06/08/22 11:43 DL [id number] 06/08/22 11:46 DL 05/19/22 05/19/22 06/01/22 13:44 13:47 10:51 WC - Today's Visit Information Type of service Follow-up Visit Follow-up Visit (Physician/DICE MANAGER (Physician/DICE MANAGER ) ) Arrival Mode Ambulatory Ambulatory Transfer Assistance Patient Identification Verified (Name & Yes ) Patient Requires Transmission-Based Precautions Finger Stick Blood Sugar(mg/dl) (if not checked indicated): Blood Sugar Stated by Patient Vital Signs Temperature (97.8 F-99.1 F) 97.0 F L 97.5 F L Temperature Source Temporal Temporal Pulse Rate (60-100) 73 Pulse Location Monitor Monitor Respiratory Rate (12-18) 20 H Respiratory rate source Observation Blood Pressure (90/60-120/80) 121/67 H 122/52 H Blood Pressure Mean (mm Hg) 85 75 Source Monitor Monitor Monitor Position Sitting Semi-Fowlers Blood Pressure Location Right Arm Right Arm History Since Last Visit- (Skip if this is Patient's initial visit) Have you changed medications since your No No last visit? Any new allergies or adverse reactions No No Had a fall/change in ADL's that may No No increase risk of falls Signs or symptoms of abuse and/or No No neglect since last visit Have you been in the hospital since your No No last visit? Has dressing in place as prescribed Yes No Has compression in place as prescribed N/A No Has offloadiing in place as prescribed N/A No Experienced any changes in pain level or No No management Left Footwear Regular Shoe Right Footwear Regular Shoe Pain Scale: 0-10 Numeric Is Patient Pain Free? Yes Yes Yes 06/06/22 06/08/22 11:08 11:43 - Today's Visit Information Type of service Nurse-only Follow-up Visit Visit (Physician/DICE MANAGER ) Arrival Mode Ambulatory Ambulatory Transfer Assistance None Patient Identification Verified (Name & Yes Yes ) Patient Requires Transmission-Based No Precautions Finger Stick Blood Sugar(mg/dl) (if not checked indicated): Blood Sugar Stated by Patient Vital Signs Temperature (97.8 F-99.1 F) 97.0 F L 97.3 F L Temperature Source Temporal Temporal Pulse Rate (60-100) 72 70 Pulse Location Monitor Monitor Respiratory Rate (12-18) 18 Respiratory rate source Observation Blood Pressure (90/60-120/80) 132/82 H 152/80 H Blood Pressure Mean (mm Hg) 98 104 Source Monitor Monitor Position Semi-Fowlers Blood Pressure Location Right Arm History Since Last Visit- (Skip if this is Patient's initial visit) Have you changed medications since your No No last visit? Any new allergies or adverse reactions No No Had a fall/change in ADL's that may No No increase risk of falls Signs or symptoms of abuse and/or No No neglect since last visit Have you been in the hospital since your No No last visit? Has dressing in place as prescribed Yes Yes Has compression in place as prescribed Yes Yes Has offloadiing in place as prescribed N/A N/A Experienced any changes in pain level or No No management Left Footwear Regular Shoe Right Footwear Regular Shoe Pain Scale: 0-10 Numeric Is Patient Pain Free? Yes Yes - Nurse 1 - General Ulcer Measurement Start: 05/19/22 13:44 Freq: Status: Active Protocol: Activity Type Activity Date Activity User E-sign Co-sign Detail Recorded Client Recorded Date Recorded By Document 05/19/22 13:44 SKIP [id number] 09/08/22 13:46 KR Document 06/01/22 10:51 DL [id number] 06/01/22 10:58 DL Document 06/08/22 11:43 DL [id number] 06/08/22 11:46 DL 05/19/22 06/01/22 06/08/22 13:44 10:51 11:43 Wound Center Nurse 1 #1L adam -Current Size (cm) - Length 0.7 0.3 0.1 -Current Size (cm) - Width 0.2 0.8 0.1 -Current Size (cm) - Depth 0.1 0.3 0.1 -Total Square Cm 0.14 0.24 0.01 -Photo Taken No Yes -Undermining/Tunneling Starts (O'clock 5 ) -Undermining/Tunneling Ends (O'clock) 6 -Maximum Distance (cm) 0.3 -Exudate Amt Small None Present None Present -Exudate Type Serosanguineous -Wound Margin Distinct, Thickened Outline Attached -Granulation Amt None Present (0 Small (1-33%) Large (67-100%) %) -Granulation Quality [place] -Necrosis Amt None Present (0 Small (1-33%) Small (1-33%) %) -Necrotic Tissue Type Adherent Slough Eschar -Structure Exposed N/A N/A -Texture (Rachel-wound Skin Appearance) Assessed, Scarring Scarring Scarring -Moisture (Rachel-wound Skin Appearance) Assessed,Dry/ No Abnormality No Abnormality Scaly -Color (Rachel-wound Skin Appearance) No Abnormality, No Abnormality No Abnormality Assessed -Temperature (Rachel-wound Skin No Abnormality No Abnormality No Abnormality Appearance) (Pt Warm) (Pt Warm) (Pt Warm) -Tenderness on Palpation (Rachel-wound No No Skin Appearance) -Ulcer Cleansing Rinsed/ Soap and Water Rinsed/ Irrigated with Irrigated with Saline Saline -Foul Odor after Cleansing No No No -Anesthetic Used 5% Lidocaine 5% Lidocaine 5% Lidocaine Gel Gel Gel Left Calf (cm) 52 50 Left Ankle (cm) 30.7 27.5 WC - Nurse 2 - General Ulcer CM Notes Start: 05/19/22 13:44 Freq: Status: Active Protocol: Activity Type Activity Date Activity User E-sign Co-sign Detail Recorded Client Recorded Date Recorded By Document 05/19/22 13:58 MW [id number] 05/19/22 14:01 Document 06/01/22 11:35 [id number] 06/01/22 11:37 Document 06/08/22 12:11 Desktop 06/08/22 12:13 05/19/22 06/01/22 06/08/22 13:58 11:35 12:11 Wound Center Nurse 2 #1L adam -Time 13:59 11:35 12:11 -Correct Patient Yes Yes Yes -Correct Side, Site, Position Yes Yes Yes -Correct Procedure Yes Yes Yes -Procedure Performed Yes Yes Yes -Type of Procedure Debridement Debridement Debridement -Clinical Debridement Subcutaneous Subcutaneous Subcutaneous -Tissue Removed Subcutaneous Subcutaneous Subcutaneous -Post Debridement (cm) - Length 0.3 0.5 0.5 -Post Debridement (cm) - Width 0.7 0.9 0.9 -Post Debridement (cm) - Depth 0.7 0.4 0.4 -Total Square (Post) (cm) 0.21 0.45 0.45 -Area of Debridement (cm) - Length 0.3 0.5 0.5 -Area of Debridement (cm) - Width 0.7 0.9 0.9 -Total Square (Area) (cm) 0.21 0.45 0.45 -Tunneling No No No -Undermining/Tunneling No No No -Circular Undermining No No No -Wound/Ulcer Outcome Not Healed Not Healed Not Healed -Ulcer Cleansing Rinsed/ Rinsed/ Rinsed/ Irrigated with Irrigated with Irrigated with Saline Saline Saline -Foul Odor after Cleansing No No No -Bioengineered Tissue No No No -Bleeding Controlled with Pressure Pressure Pressure -Treatment Response Procedure Procedure Procedure Tolerated Well Tolerated Well Tolerated Well -Offloading No No No -Debridement - Subq, 1st 20sq cm Yes Yes Yes Pain Scale: 0-10 Numeric Is Patient Pain Free? Yes Yes Yes WC - Nurse 3 - General Ulcer D/C NN Start: 05/19/22 13:44 Freq: Status: Active Protocol: Activity Type Activity Date Activity User E-sign Co-sign Detail Recorded Client Recorded Date Recorded By Document 05/19/22 14:04 [facility] [id number] 05/19/22 14:05 [facility] Document 06/01/22 11:53 DL [id number] 06/01/22 11:54 DL Document 06/06/22 11:08 KR [id number] 06/06/22 11:09 KR Document 06/08/22 12:16 JF Desktop 06/08/22 12:17 JF 05/19/22 06/01/22 06/06/22 14:04 11:53 11:08 Wound Care Nurse 3 #1L adam -Ulcer Cleansing Rinsed/ Rinsed/ Irrigated with Irrigated with Saline Saline -Foul Odor after Cleansing No No -Primary Dressing Applied Promogran Promogran Promogran Leora Matter Leora Matter Leora Matter -Primary Dressing Covered/Secured with Dry Gauze, Dry Gauze Dry Gauze, Secured with Secured with Tape Tape -Other Covering TUBIGRIP -Promogran Leora Matter 1 1 1 Left -Lotion applied to leg before compression wrap -Multi-Layered Wrap Application Multi-Layer Multi-Layer Comp - Left ($) Comp - Left ($) Treatment Response Procedure Procedure Tolerated Well Tolerated Well Vital Signs Temperature (97.8 F-99.1 F) 97.0 F L Temperature Source Temporal Pulse Rate (60-100) 72 Pulse Location Monitor Blood Pressure (90/60-120/80) 132/82 H Blood Pressure Mean (mm Hg) 98 Source Monitor Position Semi-Fowlers Blood Pressure Location Right Arm Pain Scale: 0-10 Numeric Is Patient Pain Free? Yes Yes Yes WC - Visit Discharge Discharge Condition Stable Stable Stable Ambulatory Status Ambulatory Ambulatory Ambulatory Transportation Private Auto Private Auto Private Auto Medication Reconcilliation completed & provided to patient/care provider Clinical Summary of Care Provided 06/08/22 12:16 Wound Care Nurse 3 #1L adam -Ulcer Cleansing Rinsed/ Irrigated with Saline -Foul Odor after Cleansing No -Primary Dressing Applied Promogran Leora Matter -Primary Dressing Covered/Secured with Dry Gauze -Other Covering -Promogran Leora Matter 1 Left -Lotion applied to leg before Yes compression wrap -Multi-Layered Wrap Application Multi-Layer Comp - Left ($) Treatment Response Vital Signs Temperature (97.8 F-99.1 F) Temperature Source Pulse Rate (60-100) Pulse Location Blood Pressure (90/60-120/80) Blood Pressure Mean (mm Hg) Source Position Blood Pressure Location Pain Scale: 0-10 Numeric Is Patient Pain Free? Yes WC - Visit Discharge Discharge Condition Stable Ambulatory Status Ambulatory Transportation Private Auto Medication Reconcilliation completed & Yes provided to patient/care provider Clinical Summary of Care Provided Yes Assessment/Plan Assessment/Plan (1) Non-healing ulcer of lower leg with fat layer exposed: CODE(S): L97.902 - Non-pressure chronic ulcer of unspecified part of unspecified lower leg with fat layer exposed (2) Diabetic ulcer of left lower leg: CODE(S): E11.622 - Type 2 diabetes mellitus with other skin ulcer; L97.929 - Non-pressure chronic ulcer of unspecified part of left lower leg with unspecified severity (3) Diabetes mellitus: CODE(S): E11.9 - Type 2 diabetes mellitus without complications (4) Anticoagulant long-term use: CODE(S): Z79.01 - custodial (current) use of anticoagulants PLAN: Plan Patient was evaluated at the wound center today. Subcutaneous debridement was performed as documented. Her wound care will be moistened Leora packed into the ulcer top with gauze. Continue 3M 2 layer wraps for compression, she tolerated these very well. Encouraged patient to sit with legs elevated and to avoid standing for long periods of time. Avoid sleeping in a chair. Wound culture obtained 05/05/22 and was positive for Staphylococcus pseudintermediu (resistant) and Staphylococcus aureus and she completed Levofloxacin. Follow up 1 week.
== END 2022-06-10 23:59 | disposition home or self-care (01) ==
LOC: WC 11:30
PROVIDERS: PCP Family Medicine; Visit Provider Nurse Practitioner Family
DX: E11.622 Type 2 diabetes mellitus with other skin ulcer (principal); L97.822 Non-pressure chronic ulcer of other part of left lower leg with fat layer exposed; Z79.01 Long term (current) use of anticoagulants; R60.0 Localized edema; Z86.711 Personal history of pulmonary embolism
CPT/HCPCS: 11042; 29581

== ENCOUNTER 2022-06-15 11:00 | Outpatient (RCR) | payer MEDICARE, SELFPAY ==
[2022-06-11 01:39] VITALS: BP 152/80; PULSE 70; RESP 18; TEMP 36.3
[2022-06-13 11:39] VITALS: BP 104/75; PULSE 78; TEMP 36.1
[2022-06-15 11:02] VITALS: BP 146/83; PULSE 71; RESP 18; TEMP 35.8
--- NOTE | 2022-06-15 12:19 | PN.PCM_ITS ---
History of Present Illness Date of Service: 06/15/22 Chief Complaint: Non-healing ulcer on left anterior leg History of Wound: Patient is a 71-year-old female who presents today with a left anterior leg ulcer that she acquired in December when she hit her leg on a pallet. She showed it to her primary care a month or 2 later and was told that it would heal eventually. Her finished hardware erector thought couple weeks ago and thought it looked infected and placed her on an antibiotic, which she has completed, but does not know what the antibiotic was. She has been putting antibiotic ointment on it periodically and occasionally lets it scab over. 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 History of throat surgery, not thyroid. Wound care to left anterior leg is moistened Leora covered with gauze. Compression is a single tubigrip. YOLA obtained 05/11/22 - Right - 0.875, Left - 0.821. Wound culture obtained 05/05/22 and was positive for Staphylococcus pseudinter mediu (resistant) and Staphylococcus aureus which are both sensitive Levofloxacin. She denies any fever, chills, nausea, or vomiting. She states she has a good appetite. Progress of Wound: Left leg ulcer is deeper than it had been. She continues to have bilateral lower extremity edema. Objective Data Objective Data Vital Signs: Vital Signs Temp Pulse Resp BP O2 Del Method 96.4 F L 71 18 146/83 H Room Air 06/15/22 11:02 06/15/22 11:02 06/15/22 11:02 06/15/22 11:02 06/15/22 11:02 Oxygen Delivery Method Room Air Charges/Coding Procedures Integumentary 111xxx-113xx: 63068 Mary subq tissue 20 sq cm/< Physical Exam Const alert and oriented x3 General Appearance: cooperative HEENT normocephalic Resp normal respiratory effort Effort and Inspection: able to speak in complete sentences Cardio regular rate Peripheral Pulses: dorsalis pedis pulses present bilateral 2+ Extremity normal capillary refill Extremity Narrative: +2 edema Skin Skin Narrative: +2 edema bilateral legs Wound Narrative: Left anterior leg ulcer is pink but larger and deeper in size. Neuro oriented x3 Psych thought process normal and cooperative Debridement Note Debridement Note Wound debrided: anterior leg ulcer Laterality: Left Type of Debridement: Excisional debridement Anesthesia Used: 5% Lidocaine Gel Depth: Down to and including healthy tissue and in the subcutaneous layer Percentage of wound debrided: 100 Instrument Used: 5mm curette Tissue Removed: Devitalized tissue and slough Severity: Fat Layer Exposed Amount of bleeding with debridement: Mild Bleeding Controlled with: Compression and gauze Patient tolerated procedure: Patient tolerated procedure well Post-Debridement Measurements and Additional Note: Post-Debridement Measurements/Treatment - Nurse 1 - General Ulcer Assessment Start: 06/13/22 11:39 Freq: Status: Active Protocol: AJ Activity Type Activity Date Activity User E-sign Co-sign Detail Recorded Client Recorded Date Recorded By Document 06/13/22 11:39 [id number] 06/13/22 11:40 KR Document 06/15/22 11:02 [facility] [id number] 06/15/22 11:13 [facility] 06/13/22 06/15/22 11:39 11:02 - Today's Visit Information Type of service Nurse-only Follow-up Visit Visit (Physician/PROFESSOR COMPUTER SCIENCE ) Arrival Mode Ambulatory Ambulatory Transfer Assistance None Patient Identification Verified (Name & Yes Yes ) Patient Requires Transmission-Based No Precautions Vital Signs Temperature (97.8 F-99.1 F) 96.9 F L 96.4 F L Temperature Source Temporal Temporal Pulse Rate (60-100) 78 71 Pulse Location Monitor Monitor Respiratory Rate (12-18) 18 Respiratory rate source Observation Oxygen Delivery Method Room Air Blood Pressure (90/60-120/80) 104/75 146/83 H Blood Pressure Mean (mm Hg) 84 104 Source Monitor Monitor Position Semi-Fowlers Sitting Blood Pressure Location Right Arm Left Forearm History Since Last Visit- (Skip if this is Patient's initial visit) Have you changed medications since your No No last visit? Any new allergies or adverse reactions No No Had a fall/change in ADL's that may No No increase risk of falls Signs or symptoms of abuse and/or No No neglect since last visit Have you been in the hospital since your No No last visit? Has dressing in place as prescribed Yes Yes Has compression in place as prescribed Yes Yes Has offloadiing in place as prescribed N/A N/A Experienced any changes in pain level or No No management Left Footwear Slipper Slipper Right Footwear Slipper Slipper Pain Scale: 0-10 Numeric Is Patient Pain Free? Yes Yes - Nurse 1 - General Ulcer Measurement Start: 06/13/22 11:39 Freq: Status: Active Protocol: Activity Type Activity Date Activity User E-sign Co-sign Detail Recorded Client Recorded Date Recorded By Document 06/15/22 11:02 [facility] [id number] 06/15/22 11:13 [facility] 06/15/22 11:02 Wound Center Nurse 1 #1L adam -Combined with other wound No -Current Size (cm) - Length 0.1 -Current Size (cm) - Width 0.1 -Current Size (cm) - Depth 0.1 -Total Square Cm 0.01 -Date of Last Picture (Recall this 06/15/22 field) -Photo Taken Yes -Epithelialization Large 67-100% -Tunneling No -Undermining/Tunneling No -Circular Undermining No -Exudate Amt Small -Exudate Type Serous -Wound Margin Flat & Intact -Granulation Amt None Present (0 %) -Slough/Fibrin Yes -Necrosis Amt Large (67-100%) -Necrotic Tissue Type Eschar -Texture (Rachel-wound Skin Appearance) Assessed, Scarring -Moisture (Rachel-wound Skin Appearance) Assessed,Dry/ Scaly -Color (Rachel-wound Skin Appearance) Assessed -Temperature (Rachel-wound Skin No Abnormality Appearance) (Pt Warm) -Tenderness on Palpation (Rachel-wound No Skin Appearance) -Ulcer Cleansing Soap and Water -Foul Odor after Cleansing No -Anesthetic Used 5% Lidocaine Gel Lower Limb Edema Present Yes Left Calf (cm) 46.1 Left Ankle (cm) 27 - Nurse 2 - General Ulcer CM Notes Start: 06/13/22 11:39 Freq: Status: Active Protocol: Activity Type Activity Date Activity User E-sign Co-sign Detail Recorded Client Recorded Date Recorded By Document 06/15/22 11:24 [id number] 06/15/22 11:29 06/15/22 11:24 Wound Center Nurse 2 #1L adam -Time 11:25 -Correct Patient Yes -Correct Side, Site, Position Yes -Correct Procedure Yes -Procedure Performed Yes -Type of Procedure Debridement -Clinical Debridement Subcutaneous -Tissue Removed Subcutaneous -Post Debridement (cm) - Length 0.3 -Post Debridement (cm) - Width 0.8 -Post Debridement (cm) - Depth 1 -Total Square (Post) (cm) 0.24 -Area of Debridement (cm) - Length 0.3 -Area of Debridement (cm) - Width 0.8 -Total Square (Area) (cm) 0.24 -Tunneling No -Undermining/Tunneling No -Circular Undermining No -Wound/Ulcer Outcome Not Healed -Ulcer Cleansing Rinsed/ Irrigated with Saline -Foul Odor after Cleansing No -Bioengineered Tissue No -Bleeding Controlled with Pressure -Treatment Response Procedure Tolerated Well -Offloading No -Debridement - Subq, 1st 20sq cm Yes Pain Scale: 0-10 Numeric Is Patient Pain Free? Yes - Nurse 3 - General Ulcer D/C NN Start: 06/13/22 11:39 Freq: Status: Active Protocol: Activity Type Activity Date Activity User E-sign Co-sign Detail Recorded Client Recorded Date Recorded By Document 06/13/22 11:39 [id number] 06/13/22 11:40 KR Document 06/15/22 11:42 [facility] [id number] 06/15/22 11:43 [facility] 06/13/22 06/15/22 11:39 11:42 Vital Signs Temperature (97.8 F-99.1 F) 96.9 F L Temperature Source Temporal Pulse Rate (60-100) 78 Pulse Location Monitor Blood Pressure (90/60-120/80) 104/75 Blood Pressure Mean (mm Hg) 84 Source Monitor Position Semi-Fowlers Blood Pressure Location Right Arm Pain Scale: 0-10 Numeric Is Patient Pain Free? Yes Yes Wound Care Nurse 3 #1L adam -Ulcer Cleansing Rinsed/ Rinsed/ Irrigated with Irrigated with Saline Saline -Foul Odor after Cleansing No -Primary Dressing Applied Promogran Aquacel AG 2x2 Leora Matter -Primary Dressing Covered/Secured with Dry Gauze, Dry Gauze Secured with Tape -Aquacel AG 2x2 1 -Promogran Leora Matter 1 Left -Multi-Layered Wrap Application Multi-Layer Multi-Layer Comp - Left ($) Comp - Left ($) Treatment Response Procedure Tolerated Well WC - Visit Discharge Discharge Condition Stable Stable Ambulatory Status Ambulatory Ambulatory Transportation Private Auto Private Auto Assessment/Plan Assessment/Plan (1) Non-healing ulcer of lower leg with fat layer exposed: CODE(S): L97.902 - Non-pressure chronic ulcer of unspecified part of unspecified lower leg with fat layer exposed (2) Diabetic ulcer of left lower leg: CODE(S): E11.622 - Type 2 diabetes mellitus with other skin ulcer; L97.929 - Non-pressure chronic ulcer of unspecified part of left lower leg with unspecified severity (3) Diabetes mellitus: CODE(S): E11.9 - Type 2 diabetes mellitus without complications (4) Anticoagulant long-term use: CODE(S): Z79.01 - buttermaker continuous churn (current) use of anticoagulants (5) Peripheral vascular disease: CODE(S): I73.9 - Peripheral vascular disease, unspecified PLAN: Plan Patient was evaluated at the wound center today. Subcutaneous debridement was performed as documented. Her wound care will be Aquacel-Ag to the ulcer top with gauze. Continue 3M 2 layer wraps for compression, she tolerated these very well. Encouraged patient to sit with legs elevated and to avoid standing for long periods of time. Avoid sleeping in a chair. Wound culture obtained 05/05/22 and was positive for Staphylococcus pseudintermediu (resistant) and Staphylococcus aureus and she completed Levofloxacin. Will order vascular studies due to the lack of healing of the ulcer. Follow up 1 week.
== END 2022-07-11 23:59 | disposition home or self-care (01) ==
LOC: WC 11:00
PROVIDERS: PCP Family Medicine; Visit Provider Nurse Practitioner Family
DX: E11.622 Type 2 diabetes mellitus with other skin ulcer (principal); E11.51 Type 2 diabetes mellitus with diabetic peripheral angiopathy without gangrene; L97.822 Non-pressure chronic ulcer of other part of left lower leg with fat layer exposed; R60.0 Localized edema; Z79.01 Long term (current) use of anticoagulants
CPT/HCPCS: 11042; 29581

== ENCOUNTER 2022-07-19 15:14 | Outpatient (RCR) | payer MEDICARE, SELFPAY ==
[2022-07-12 00:34] VITALS: BP 146/83; PULSE 71; RESP 18; TEMP 35.8
[2022-07-19 15:35] VITALS: BP 132/96; PULSE 68; TEMP 36.2
--- NOTE | 2022-07-19 16:31 | PN.PCM_ITS ---
History of Present Illness Date of Service: 07/19/22 Chief Complaint: Non-healing ulcer on left anterior leg History of Wound: Patient is a 71-year-old female who presents today with a left anterior leg ulcer that she acquired in December when she hit her leg on a pallet. She showed it to her primary care a month or 2 later and was told that it would heal eventually. Her cryolite recovery operator thought couple weeks ago and thought it looked infected and placed her on an antibiotic, which she has completed, but does not know what the antibiotic was. She has been putting antibiotic ointment on it periodically and occasionally lets it scab over. 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 History of throat surgery, not thyroid. Wound care to left anterior leg is moistened Margo covered with gauze. Compression is a single tubigrip. YOLA obtained 05/11/22 - Right - 0.875, Left - 0.821. Wound culture obtained 05/05/22 and was positive for Staphylococcus pseudinter mediu (resistant) and Staphylococcus aureus which are both sensitive Levofloxacin. She denies any fever, chills, nausea, or vomiting. She states she has a good appetite. Progress of Wound: Left anterior leg ulcer is larger and deeper than it had been. She continues to have +4 bilateral lower extremity edema. She has not been wearing her compression. Her daughter has been hospitalized on and off for the past several weeks for complications from back surgery and the Jennie has been sitting with her daughter with her legs dependent with no compression. Objective Data Objective Data Vital Signs: Vital Signs Temp Pulse Resp BP 97.2 F L 68 18 132/96 H 07/19/22 15:35 07/19/22 15:35 07/12/22 00:34 07/19/22 15:35 Charges/Coding Procedures Integumentary [id number]: [id number] Mary subq tissue 20 sq cm/< Debridement Note Debridement Note Wound debrided: anterior leg ulcer Laterality: Left Type of Debridement: Excisional debridement Anesthesia Used: 5% Lidocaine Gel Depth: Down to and including healthy tissue and in the subcutaneous layer Percentage of wound debrided: 100 Instrument Used: 3mm curette Tissue Removed: Devitalized tissue and slough Severity: Fat Layer Exposed Amount of bleeding with debridement: Mild Bleeding Controlled with: Compression and gauze Patient tolerated procedure: Patient tolerated procedure well Post-Debridement Measurements and Additional Note: Post-Debridement Measurements/Treatment - Nurse 1 - General Ulcer Assessment Start: 07/19/22 15:31 Freq: Status: Active Protocol: AJ Activity Type Activity Date Activity User E-sign Co-sign Detail Recorded Client Recorded Date Recorded By Document 07/19/22 15:35 MARILY [id number] 07/19/22 15:37 MARILY 07/19/22 15:35 WC - Today's Visit Information Type of service Follow-up Visit (Physician/GEAR CODING MACHINE OPERATOR ) Arrival Mode Ambulatory Patient Identification Verified (Name & Yes ) Patient Requires Transmission-Based No Precautions Vital Signs Temperature (97.8 F-99.1 F) 97.2 F L Temperature Source Temporal Pulse Rate (60-100) 68 Pulse Location Monitor Blood Pressure (90/60-120/80) 132/96 H Blood Pressure Mean (mm Hg) 108 Source Monitor History Since Last Visit- (Skip if this is Patient's initial visit) Have you changed medications since your No last visit? Any new allergies or adverse reactions No Had a fall/change in ADL's that may No increase risk of falls Signs or symptoms of abuse and/or No neglect since last visit Have you been in the hospital since your No last visit? Has dressing in place as prescribed Yes Has compression in place as prescribed N/A Has offloadiing in place as prescribed N/A Experienced any changes in pain level or No management Left Footwear Regular Shoe Right Footwear Regular Shoe Pain Scale: 0-10 Numeric Is Patient Pain Free? Yes - Nurse 1 - General Ulcer Measurement Start: 07/19/22 15:31 Freq: Status: Active Protocol: Activity Type Activity Date Activity User E-sign Co-sign Detail Recorded Client Recorded Date Recorded By Document 07/19/22 15:35 MARILY [id number] 07/19/22 15:37 MARILY 07/19/22 15:35 Wound Center Nurse 1 #1L adam -Combined with other wound No -Current Size (cm) - Length 0.3 -Current Size (cm) - Width 1 -Current Size (cm) - Depth 0.2 -Total Square Cm 0.3 -Date of Last Picture (Recall this 07/19/22 field) -Photo Taken Yes -Tunneling No -Undermining/Tunneling No -Circular Undermining No -Change in Wound Grade/Stage No -Exudate Amt Medium -Exudate Type Serosanguineous -Wound Margin Distinct, Outline Attached -Granulation Amt Medium (34-66%) -Granulation Quality Pale,Artas -Slough/Fibrin Yes -Necrosis Amt Medium (34-66%) -Necrotic Tissue Type Adherent Slough -Structure Exposed N/A -Texture (Rachel-wound Skin Appearance) No Abnormality, Assessed -Moisture (Rachel-wound Skin Appearance) No Abnormality, Assessed -Color (Rachel-wound Skin Appearance) No Abnormality, Assessed -Temperature (Rachel-wound Skin No Abnormality Appearance) (Pt Warm) -Tenderness on Palpation (Rachel-wound No Skin Appearance) -Ulcer Cleansing Rinsed/ Irrigated with Saline -Foul Odor after Cleansing No -Anesthetic Used 5% Lidocaine Gel WC - Nurse 2 - General Ulcer CM Notes Start: 07/19/22 15:31 Freq: Status: Active Protocol: Activity Type Activity Date Activity User E-sign Co-sign Detail Recorded Client Recorded Date Recorded By Document 07/19/22 15:32 [id number] 07/19/22 15:36 07/19/22 15:32 Wound Center Nurse 2 -Time 15:35 -Correct Patient Yes -Correct Side, Site, Position Yes -Correct Procedure Yes -Procedure Performed Yes -Type of Procedure Debridement -Clinical Debridement Subcutaneous -Tissue Removed Subcutaneous -Post Debridement (cm) - Length 0.5 -Post Debridement (cm) - Width 1.0 -Post Debridement (cm) - Depth 0.2 -Total Square (Post) (cm) 0.50 -Area of Debridement (cm) - Length 0.5 -Area of Debridement (cm) - Width 1.0 -Total Square (Area) (cm) 0.50 -Tunneling No -Undermining/Tunneling No -Circular Undermining No -Wound/Ulcer Outcome Not Healed -Ulcer Cleansing Rinsed/ Irrigated with Saline -Foul Odor after Cleansing No -Bioengineered Tissue No -Bleeding Controlled with Pressure -Treatment Response Procedure Tolerated Well -Offloading No -Debridement - Subq, 1st 20sq cm Yes Pain Scale: 0-10 Numeric Is Patient Pain Free? Yes WC - Nurse 3 - General Ulcer D/C NN Start: 07/19/22 15:31 Freq: Status: Active Protocol: Activity Type Activity Date Activity User E-sign Co-sign Detail Recorded Client Recorded Date Recorded By Document 07/19/22 15:54 [facility] [id number] 07/19/22 15:55 [facility] 07/19/22 15:54 Wound Care Nurse 3 #1L adam -Ulcer Cleansing Rinsed/ Irrigated with Saline -Foul Odor after Cleansing No -Other Dressing MARGO -Other Covering ABD BLE -Multi-Layered Wrap Application Multi-Layer Comp - Bilat ($ ) Treatment Response Procedure Tolerated Well Pain Scale: 0-10 Numeric Is Patient Pain Free? Yes WC - Visit Discharge Discharge Condition Stable Ambulatory Status Ambulatory Transportation Private Auto Assessment/Plan Assessment/Plan (1) Non-healing ulcer of lower leg with fat layer exposed: CODE(S): L97.902 - Non-pressure chronic ulcer of unspecified part of unspecified lower leg with fat layer exposed (2) Diabetic ulcer of left lower leg: CODE(S): E11.622 - Type 2 diabetes mellitus with other skin ulcer; L97.929 - Non-pressure chronic ulcer of unspecified part of left lower leg with unspecified severity (3) Diabetes mellitus: CODE(S): E11.9 - Type 2 diabetes mellitus without complications (4) Anticoagulant long-term use: CODE(S): Z79.01 - [facility] (current) use of anticoagulants (5) Peripheral vascular disease: CODE(S): I73.9 - Peripheral vascular disease, unspecified PLAN: Plan Patient was evaluated at the wound center today. Subcutaneous debridement was performed as documented. Her wound care will be Aquacel-Ag to the ulcer top with gauze. Will place 3 M 2 layer wraps on her legs bilaterally for her her +4 edema. Encouraged patient to sit with legs elevated and to avoid standing for long periods of time. Avoid sleeping in a chair. Wound culture obtained 05/05/22 and was positive for Staphylococcus pseudintermediu (resistant) and Staphylococcus aureus and she completed Levofloxacin. She missed her vascular studies, will try get them rescheduled. Follow up 1 week.
== END 2022-08-10 23:59 | disposition home or self-care (01) ==
LOC: WC 15:14
PROVIDERS: PCP Family Medicine; Visit Provider Nurse Practitioner Family
DX: E11.622 Type 2 diabetes mellitus with other skin ulcer (principal); E11.51 Type 2 diabetes mellitus with diabetic peripheral angiopathy without gangrene; L97.822 Non-pressure chronic ulcer of other part of left lower leg with fat layer exposed; Z79.4 Long term (current) use of insulin; R60.0 Localized edema; Z79.01 Long term (current) use of anticoagulants; Z79.899 Other long term (current) drug therapy; Z86.711 Personal history of pulmonary embolism
CPT/HCPCS: 11042; 29581

== ENCOUNTER 2022-08-15 13:29 | Outpatient (RCR) | payer MEDICARE, SELFPAY ==
[2022-08-11 00:31] VITALS: BP 132/96; PULSE 68; RESP 18; TEMP 36.2
[2022-08-15 13:35] VITALS: BP 180/74; PULSE 74; RESP 20; TEMP 36.2
--- NOTE | 2022-08-15 14:48 | PN.PCM_ITS ---
History of Present Illness Date of Service: 08/15/22 Chief Complaint: Non-healing ulcer on left anterior leg History of Wound: Patient is a 71-year-old female who presents today with a left anterior leg ulcer that she acquired in December when she hit her leg on a pallet. She showed it to her primary care a month or 2 later and was told that it would heal eventually. Her electric switch tester thought couple weeks ago and thought it looked infected and placed her on an antibiotic, which she has completed, but does not know what the antibiotic was. She has been putting antibiotic ointment on it periodically and occasionally lets it scab over. 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 History of throat surgery, not thyroid. Wound care to left anterior leg is moistened Leora covered with gauze. Compression is a single tubigrip. YOLA obtained 05/11/22 - Right - 0.875, Left - 0.821. Wound culture obtained 05/05/22 and was positive for Staphylococcus pseudinter mediu (resistant) and Staphylococcus aureus which are both sensitive Levofloxacin. She denies any fever, chills, nausea, or vomiting. She states she has a good appetite. Progress of Wound: Left anterior leg ulcer is healed. She continues to have +3 bilateral lower extremity edema. She has not been wearing her compression. She states she is not interested in wearing compression. Objective Data Objective Data Vital Signs: Vital Signs Temp Pulse Resp BP 97.2 F L 74 20 H 180/74 H 08/15/22 13:35 08/15/22 13:35 08/15/22 13:35 08/15/22 13:35 Charges/Coding Visit Charges Office Visits / Consults: 12384 OV L3 Est Physical Exam Const alert and oriented x3 HEENT normocephalic Resp normal respiratory effort and clear to auscultation bilaterally Effort and Inspection: able to speak in complete sentences Cardio regular rate and regular rhythm Peripheral Pulses: dorsalis pedis pulses present bilateral 2+ GI non-tender Extremity normal capillary refill Extremity Narrative: +3 edema Skin Skin Narrative: +2 edema bilateral legs Wound Narrative: Left anterior leg ulcer is healed today Neuro oriented x3 Psych thought process normal and affect normal Debridement Note Debridement Note No debridement was completed: No debridement was completed today Post-Debridement Measurements and Additional Note: Post-Debridement Measurements/Treatment WC - Nurse 1 - General Ulcer Assessment Start: 08/15/22 13:32 Freq: Status: Active Protocol: AJ Activity Type Activity Date Activity User E-sign Co-sign Detail Recorded Client Recorded Date Recorded By Document 08/15/22 13:35 DL [id number] 08/15/22 13:40 DL 08/15/22 13:35 WC - Today's Visit Information Type of service Follow-up Visit (Physician/KITCHEN UTILITY ASSOCIATE ) Arrival Mode Ambulatory Transfer Assistance None Patient Requires Transmission-Based No Precautions Finger Stick Blood Sugar(mg/dl) (if not checked indicated): Blood Sugar Stated by Patient Vital Signs Temperature (97.8 F-99.1 F) 97.2 F L Temperature Source Temporal Pulse Rate (60-100) 74 Pulse Location Monitor Respiratory Rate (12-18) 20 H Respiratory rate source Observation Blood Pressure (90/60-120/80) 180/74 H Blood Pressure Mean (mm Hg) 109 Source Monitor History Since Last Visit- (Skip if this is Patient's initial visit) Have you changed medications since your No last visit? Any new allergies or adverse reactions No Had a fall/change in ADL's that may No increase risk of falls Signs or symptoms of abuse and/or No neglect since last visit Have you been in the hospital since your No last visit? Has dressing in place as prescribed Yes Has compression in place as prescribed No Has offloadiing in place as prescribed N/A Experienced any changes in pain level or Yes management Pain Scale: 0-10 Numeric Is Patient Pain Free? Yes - Nurse 1 - General Ulcer Measurement Start: 08/15/22 13:32 Freq: Status: Active Protocol: Activity Type Activity Date Activity User E-sign Co-sign Detail Recorded Client Recorded Date Recorded By Document 08/15/22 13:35 DL [id number] 08/15/22 13:40 DL Edit Result 08/15/22 13:35 DL (1) [id number] 08/15/22 13:43 DL (1) #1L adam - Exudate Amt => None Present - Wound Margin => Thickened - Granulation Amt => Large (67-100%) - Granulation Quality => Pale - Necrosis Amt => None Present (0%) - Structure Exposed => N/A - Texture (Rachel-wound Skin Appearance) => Scarring - Moisture (Rachel-wound Skin Appearance) => No Abnormality - Color (Rachel-wound Skin Appearance) => No Abnormality - Temperature (Rachel-wound Skin => No Abnormality (Pt Appearance) => Warm) - Tenderness on Palpation (Rachel-wound => No Skin Appearance) - Ulcer Cleansing => Rinsed/Irrigated => with Saline - Foul Odor after Cleansing => No - Anesthetic Used => 5% Lidocaine Gel 08/15/22 13:35 Wound Center Nurse 1 #1L adam -Current Size (cm) - Length 0 -Current Size (cm) - Width 0 -Current Size (cm) - Depth 0 -Total Square Cm 0 -Photo Taken Yes -Exudate Amt None Present -Wound Margin Thickened -Granulation Amt Large (67-100%) -Granulation Quality Pale -Necrosis Amt None Present (0 %) -Structure Exposed N/A -Texture (Rachel-wound Skin Appearance) Scarring -Moisture (Rachel-wound Skin Appearance) No Abnormality -Color (Rachel-wound Skin Appearance) No Abnormality -Temperature (Rachel-wound Skin No Abnormality Appearance) (Pt Warm) -Tenderness on Palpation (Rachel-wound No Skin Appearance) -Ulcer Cleansing Rinsed/ Irrigated with Saline -Foul Odor after Cleansing No -Anesthetic Used 5% Lidocaine Gel HAZEL - Nurse 2 - General Ulcer CM Notes Start: 08/15/22 13:32 Freq: Status: Active Protocol: Activity Type Activity Date Activity User E-sign Co-sign Detail Recorded Client Recorded Date Recorded By Document 08/15/22 14:37 [id number] 08/15/22 14:39 MANDI 08/15/22 14:37 Wound Center Nurse 2 -Correct Patient No -Correct Side, Site, Position No -Correct Procedure No -Procedure Performed No -Post Debridement (cm) - Length 0 -Post Debridement (cm) - Width 0 -Post Debridement (cm) - Depth 0 -Total Square (Post) (cm) 0 -Area of Debridement (cm) - Length 0 -Area of Debridement (cm) - Width 0 -Total Square (Area) (cm) 0 -Wound/Ulcer Outcome Healed- Epithelialized Pain Scale: 0-10 Numeric Is Patient Pain Free? Yes WC - Nurse 3 - General Ulcer D/C NN Start: 08/15/22 13:32 Freq: Status: Active Protocol: Activity Type Activity Date Activity User E-sign Co-sign Detail Recorded Client Recorded Date Recorded By Document 08/15/22 14:39 MANDI [id number] 08/15/22 14:39 MANDI 08/15/22 14:39 Is Patient Pain Free? Yes WC - Visit Discharge Discharge Condition Stable Ambulatory Status Ambulatory Transportation Private Auto Medication Reconcilliation completed & Yes provided to patient/care provider Clinical Summary of Care Provided Yes Assessment/Plan Assessment/Plan (1) Non-healing ulcer of lower leg with fat layer exposed: CODE(S): L97.902 - Non-pressure chronic ulcer of unspecified part of unspecified lower leg with fat layer exposed (2) Diabetic ulcer of left lower leg: CODE(S): E11.622 - Type 2 diabetes mellitus with other skin ulcer; L97.929 - Non-pressure chronic ulcer of unspecified part of left lower leg with unspecified severity (3) Diabetes mellitus: CODE(S): E11.9 - Type 2 diabetes mellitus without complications (4) Anticoagulant long-term use: CODE(S): Z79.01 - group home (current) use of anticoagulants (5) Peripheral vascular disease: CODE(S): I73.9 - Peripheral vascular disease, unspecified PLAN: Plan Patient was evaluated at the wound center today. Her ulcer is healed today. We discussed the importance of compression. Patient states that she is not interested in wearing compression. Stressed that with edematous tissue, the skin is more fragile and can easily develop wounds/ulcers. She verbalized understanding. Instructed that she can go to [facility] and be measured for compression stockings. Encouraged patient to sit with legs elevated and to avoid standing for long periods of time. Avoid sleeping in a chair. Encouraged a low sodium diet to prevent further edema. Wound culture obtained 05/05/22 and was positive for Staphylococcus pseudintermediu (resistant) and Staphylococcus aureus and she completed Levofloxacin. She never obtained her vascular studies. Follow up as needed. .
== END 2022-08-17 13:32 | disposition home or self-care (01) ==
LOC: WC 13:29
PROVIDERS: PCP Family Medicine; Visit Provider Nurse Practitioner Family
DX: Z09 Encounter for follow-up examination after completed treatment for conditions other than malignant neoplasm (principal); E11.51 Type 2 diabetes mellitus with diabetic peripheral angiopathy without gangrene; Z79.4 Long term (current) use of insulin; R60.0 Localized edema; Z79.01 Long term (current) use of anticoagulants; Z79.899 Other long term (current) drug therapy
CPT/HCPCS: 99213; G0463

== ENCOUNTER 2023-03-28 10:30 | Outpatient (RCR) | payer MEDICARE, SELFPAY ==
[2023-03-21 09:00] VITALS: BP 103/32; PULSE 72; RESP 22; TEMP 36.3; BMI 42.5
--- NOTE | 2023-03-21 14:05 | HP.PCM_ITS ---
History of Present Illness Date of Service: 03/21/23 Chief Complaint: Ulceration of the left posterior calf History of Wound: This is a 72-year-old female with multiple pre-existing medical problems. She is obese, with a BMI of 42.5. She is also a poorly controlled diabetic. She is in poor compliance with her diabetic management, and is on insulin and an oral agent. Her other pre-existing medical problems are included herein. Patient presents with an ulceration on the left posterior calf. Etiology is uncertain. It has been present for approximately 2 to 3 months. She also has chronic swelling, edema, and lymphedema in her lower extremities. She has recently been treated with doxycycline for cellulitis in the area. She has a history of pulmonary embolism approximately 10 years ago, and is on systemic anticoagulation therapy using Eliquis. She claims to sleep on a flat mattress at night. She is not very active. Patient's history is negative for myocardial infarction, congestive heart failure, cerebrovascular accident, pulmonary disease, and thyroid disease. [facility] Medical History Edema of both legs Gallbladder abscess History of pulmonary embolism Hyperlipidemia Hypertension Lower extremity ulceration Lymphedema Morbid obesity with BMI of 40.0-44.9, adult Swelling of left lower extremity Swelling of right lower extremity Home Medications Trulicity 4.5 mg/0.5 mL subcutaneous pen injector (dulaglutide) 4.5 mg (0.5 mL) subcut QWEEK #2 mL 04/27/22 [Rx Last Taken Unknown] insulin aspart U-100 100 unit/mL (3 mL) subcutaneous pen (Novolog FlexPen U-100 Insulin aspart) 1 sliding scale dose subcut USEASDIRECTD 04/27/22 [History Last Taken Unknown] meloxicam 7.5 mg tablet 7.5 mg PO BID 04/27/22 [History Last Taken Unknown] ropinirole 1 mg tablet 2 mg PO PRN restless legs 04/27/22 [History Last Taken Unknown] simvastatin 5 mg tablet 5 mg PO DAILY 04/27/22 [History Last Taken Unknown] spironolactone 50 mg tablet 50 mg PO DAILY 04/27/22 [History Last Taken Unknown] flash glucose scanning reader (SekoiaStyle Xena 2 [place]) #1 ea 05/19/22 [Rx Last Taken Unknown] flash glucose sensor (FreeStyle Xena 2 Sensor kit) #2 ea 05/19/22 [Rx Last Taken Unknown] apixaban 2.5 mg tablet (Eliquis) 2.5 mg PO DAILY 03/21/23 [History Last Taken Unknown] bupropion HCl PO DAILY 03/21/23 [History Last Taken Unknown] carvedilol phosphate 10 mg capsule,[id number] multiphase (Coreg CR) 10 mg PO DAILY 03/21/23 [History Last Taken Unknown] duloxetine PO DAILY 03/21/23 [History Last Taken Unknown] levimir PO .c meals diabetes 03/21/23 [History Last Taken Unknown] Allergy/AdvReac Type Severity Reaction Status Date / Time Penicillins Allergy Intermediate Swelling Verified 04/27/22 09:05 hydromorphone [From Dilaudid] AdvReac Severe Other Verified 04/27/22 09:05 acetaminophen [From Vicodin] AdvReac Intermediate Vomiting Verified 04/27/22 09:05 ciprofloxacin [From Cipro] AdvReac Intermediate headache Verified 04/27/22 09:05 hydrocodone [From Vicodin] AdvReac Intermediate Vomiting Verified 04/27/22 09:05 Family History Other Alcohol abuse Arthritis Cancer Diabetes Heart disease Hypertension Surgical History H/O knee surgery H/O tubal ligation History of arthroscopic knee surgery History of left shoulder replacement Previous back surgery Social History Smoking Status: Former smoker alcohol intake: current alcohol intake frequency: 0-2 drinks per day substance use type: does not use what type of physical activity do you participate in: none Vital Signs Vital Signs Vital Signs: 03/21/23 09:00 Temperature 97.4 F L Temperature Source Temporal Pulse Rate 72 Respiratory Rate 22 H Blood Pressure 103/32 L Blood Pressure Mean 55 Blood Pressure Source Monitor Weight Weight: 240 lb 1.75 oz Body Mass Index (BMI) 42.5 Physical Exam Const alert, oriented x3, no apparent distress and well nourished Constitutional Narrative: The patient is morbidly obese, with a BMI of 42.5. General Appearance: cooperative, comfortable, well kempt and well developed Orientation / Consciousness: awake, oriented to person, oriented to place and oriented to time HEENT normocephalic, head/scalp atraumatic and hearing grossly normal bilaterally Head and Scalp: normal to inspection, normocephalic and atraumatic External Ear: external ears normal Eyes PERRL and EOMs intact bilaterally General Eye: normal appearance of both eyes Resp normal respiratory effort, normal air movement, no retractions and no use of accessory muscles Effort and Inspection: able to speak in complete sentences and symmetric chest movement Extremity no calf tenderness General Extremity: Negative for clubbing or cyanosis Skin Wound Narrative: A small ulceration is noted on the left posterior calf. There is no sign of infection or cellulitis. Dimensions are documented elsewhere. There is a moderate amount of bioburden. Severe swelling, edema, and lymphedema are noted in the patient's lower extremities bilaterally. Superficial excoriations is noted on the dorsum of the patient's left foot. Neuro oriented x3, CN's II-XII intact bilaterally and moves all extremities Sensorium / Orientation: awake, alert, oriented to person, oriented to place and oriented to time Psych Appearance: grossly normal and appropriate Attitude: calm Activity / Motor Behavior: appropriate eye contact Speech: normal speech Mood & Affect: euthymic mood Thought Process: normal thought process Thought Content: normal thought content Attention / Concentration: attention grossly intact Debridement Note Debridement Note Wound debrided: Left posterior calf Laterality: Left Type of Debridement: Excisional debridement Anesthesia Used: 5% Lidocaine Gel Depth: Down to and including healthy tissue and in the subcutaneous layer Percentage of wound debrided: 100 Instrument Used: 3mm curette Tissue Removed: Bioburden and nonviable tissue Severity: Fat Layer Exposed Amount of bleeding with debridement: Mild Bleeding Controlled with: Compression and gauze Patient tolerated procedure: Patient tolerated procedure well Post-Debridement Measurements and Additional Note: Post-Debridement Measurements/Treatment HAZEL - Nurse 1 - General Ulcer Assessment Start: 03/21/23 08:59 Freq: Status: Active Protocol: AJ Activity Type Activity Date Activity User E-sign Co-sign Detail Recorded Client Recorded Date Recorded By Document 03/21/23 09:00 DL [id number] 03/21/23 09:26 DL Edit Result 03/21/23 09:00 DL (1) [id number] 03/21/23 09:41 DL (1) Height => 5 ft 3 in Weight => 240 lb 1.75 oz Weight in Pounds => 240.1 lbs Body Mass Index (BMI) => 42.5 BMI Classification => Obese BSA - [place] => 2.09 03/21/23 09:00 WC - Today's Visit Information Type of service Initial Visit Arrival Mode Ambulatory Transfer Assistance None Patient Identification Verified (Name & Yes ) Patient Requires Transmission-Based No Precautions Finger Stick Blood Sugar(mg/dl) (if 300 indicated): Blood Sugar Stated by Patient Height and Weight Height 5 ft 3 in Weight 240 lb 1.75 oz Weight in Pounds 240.1 lbs Body Mass Index (BMI) 42.5 BMI Classification Obese BSA - [place] 2.09 Vital Signs Temperature (97.8 F-99.1 F) 97.4 F L Temperature Source Temporal Pulse Rate (60-100) 72 Pulse Location Monitor Respiratory Rate (12-18) 22 H Blood Pressure (90/60-120/80) 103/32 L Blood Pressure Mean 55 Source Monitor Pain Scale: 0-10 Numeric Is Patient Pain Free? Yes Lower Extremity Assessment/ Foot Assessment/ Toe Nail Assessment Left -Posterior Tibial Palpable No -Dorsalis Pedis Palpable No -Extremity Color Normal -Hair Growth on Legs No -Hair Growth on Toes No -Temperature of Extremity Warm -Capillary Refill Greater than 3 Seconds -Dependent Rubor Yes -Blanched when Elevated No -Lipodermatosclerosis No -Other Deformity No -Prior Foot Ulcer No -Charcot Joint No -Prior Amputation No -Thick Yes -Discolored Yes -Deformed No -Improper Length & Hygeine Yes Right -Polpliteal Pulses Palpable No -Dorsalis Pedis Palpable No -Extremity Color Normal -Hair Growth on Legs No -Hair Growth on Toes No -Temperature of Extremity Warm -Capillary Refill Greater than 3 Seconds -Dependent Rubor Yes -Blanched when Elevated No -Lipodermatosclerosis No -Other Deformity No -Prior Foot Ulcer No -Charcot Joint No -Prior Amputation No -Thick Yes -Deformed No -Improper Length & Hygeine Yes Neuropathy Assessment Feet - Top Side and Bottom <Entered> (a) Communication Assessment Preferred language Lithuanian Able to Read Yes Able to Write Yes Right Hearing Abillity Normal Left Hearing Abillity Normal Visual Assistive Devices Glasses Teaching Assessment Preferences Verbal,Written, Demonstration Barriers to Learning None Readiness To Learn Fair Willingness to Engage in Self Management Low Activies Readiness to Engage in Self Management Low Activities Anxiety Level Calm Cooperation Cooperative Perception Coherent Interest in Health Problem Uninterested Education Importance Acknowledges Need Smoking Status Former smoker Is Patient Diabetic Yes Functional Assessment Recent Decline in Ability to Perform Denies Any Declines Culture/Nondenominational/Counter [employer] Cultural/Nondenominational Needs that may affect No Treatment Plan Would you allow our hospital esters and emulsifiers supervisor to No meet you for the purpose of spiritual/ emotional support? Counter [employer] to contact place of evangelical No Teaching: Wound Center Discharge Instructions -Person Taught Patient Skin Care -Person Taught Patient *Wound/Skin Impairment -Person Taught Patient *Debridement -Person Taught Patient Dressing Your Wound -Person Taught Patient (a) 1 - + WC - Nurse 1 - General Ulcer Measurement Start: 03/21/23 08:59 Freq: Status: Active Protocol: Activity Type Activity Date Activity User E-sign Co-sign Detail Recorded Client Recorded Date Recorded By Document 03/21/23 09:00 DL [id number] 03/21/23 09:26 DL 03/21/23 09:00 Wound Center Nurse 1 #2 L Calf -Current Size (cm) - Length 0.4 -Current Size (cm) - Width 0.5 -Current Size (cm) - Depth 0.3 -Total Square Cm 0.20 -Photo Taken Yes -Exudate Amt Medium -Exudate Type Serosanguineous -Wound Margin Distinct, Outline Attached -Granulation Amt Small (1-33%) -Granulation Quality [place] -Necrosis Amt Small (1-33%) -Necrotic Tissue Type Adherent Slough -Structure Exposed N/A -Texture (Rachel-wound Skin Appearance) Scarring -Moisture (Rachel-wound Skin Appearance) No Abnormality -Color (Rachel-wound Skin Appearance) Erythema -Temperature (Rachel-wound Skin No Abnormality Appearance) (Pt Warm) -Tenderness on Palpation (Rachel-wound No Skin Appearance) -Ulcer Cleansing Soap and Water -Foul Odor after Cleansing No -Anesthetic Used 5% Lidocaine Gel Right Calf (cm) 54 Right Ankle (cm) 34 Left Calf (cm) 62 Left Ankle (cm) 37 WC - Nurse 2 - General Ulcer CM Notes Start: 03/21/23 08:59 Freq: Status: Active Protocol: Activity Type Activity Date Activity User E-sign Co-sign Detail Recorded Client Recorded Date Recorded By Document 03/21/23 11:44 PL [id number] 03/21/23 11:45 PL 03/21/23 11:44 Wound Center Nurse 2 #2 L Calf -Time 09:42 -Correct Patient Yes -Correct Side, Site, Position Yes -Correct Procedure Yes -Procedure Performed Yes -Type of Procedure Debridement -Clinical Debridement Subcutaneous -Tissue Removed Subcutaneous -Post Debridement (cm) - Length 0.5 -Post Debridement (cm) - Width 0.5 -Post Debridement (cm) - Depth 0.3 -Total Square (Post) (cm) 0.25 -Area of Debridement (cm) - Length 0.5 -Area of Debridement (cm) - Width 0.5 -Total Square (Area) (cm) 0.25 -Tunneling No -Undermining/Tunneling No -Circular Undermining No -Wound/Ulcer Outcome Not Healed -Ulcer Cleansing Rinsed/ Irrigated with Saline -Foul Odor after Cleansing No -Bioengineered Tissue No -Bleeding Controlled with Pressure -Treatment Response Procedure Tolerated Well -Debridement - Subq, 1st 20sq cm Yes Pain Scale: 0-10 Numeric Is Patient Pain Free? Yes Assessment/Plan Assessment/Plan (1) Non-healing ulcer of lower leg with fat layer exposed: CODE(S): L97.902 - Non-pressure chronic ulcer of unspecified part of unspecified lower leg with fat layer exposed QUALIFIERS: Laterality: left Qualified Code(s): L97.922 - Non- pressure chronic ulcer of unspecified part of left lower leg with fat layer exposed (2) Lower extremity ulceration: CODE(S): L97.909 - Non-pressure chronic ulcer of unspecified part of unspecified lower leg with unspecified severity (3) Swelling of left lower extremity: CODE(S): M79.89 - Other specified soft tissue disorders (4) Edema of both legs: CODE(S): R60.0 - Localized edema (5) Lymphedema: CODE(S): I89.0 - Lymphedema, not elsewhere classified (6) Peripheral vascular disease: CODE(S): I73.9 - Peripheral vascular disease, unspecified (7) Anticoagulant long-term use: CODE(S): Z79.01 - petroleum terminal plant operator (current) use of anticoagulants (8) CKD (chronic kidney disease): CODE(S): N18.9 - Chronic kidney disease, unspecified (9) Diabetes mellitus: CODE(S): E11.9 - Type 2 diabetes mellitus without complications (10) Diabetic ulcer of left lower leg: CODE(S): E11.622 - Type 2 diabetes mellitus with other skin ulcer; L97.929 - Non-pressure chronic ulcer of unspecified part of left lower leg with unspecified severity (11) Morbid obesity with BMI of 40.0-44.9, adult: CODE(S): E66.01 - Morbid (severe) obesity due to excess calories; Z68.41 - Body mass index [BMI] 40.0-44.9, adult (12) Hypertension: CODE(S): I10 - Essential (primary) hypertension (13) Hyperlipidemia: CODE(S): E78.5 - Hyperlipidemia, unspecified (14) History of pulmonary embolism: CODE(S): Z86.711 - Personal history of pulmonary embolism (15) Swelling of right lower extremity: CODE(S): M79.89 - Other specified soft tissue disorders PLAN: Plan This is a 72-year-old obese diabetic female who presents with an ulceration on the left posterior calf, which has been present for over 1 month. The patient is also noted to have chronic swelling, edema, and lymphedema in her lower extremities. She claims to sleep on a flat mattress at night. She is relatively inactive. She has a history of pulmonary embolism approximately 10 years ago. The patient has been advised to implement conservative treatment measures relative to the swelling and edema in her lower extremities. She is to continue sleeping on a flat mattress at night. She is to elevate her lower extremities even during daytime hours. Elevation is to be to heart level, or hi gher, is much as possible. Prolonged idle sitting has been discouraged. Activity has been encouraged. Weight loss has been also recommended. Nutritional optimization has been recommended. The patient has been also advised to optimize her glycemic control. We are to implement the use of Promogran topically to the ulceration on the left posterior calf. Collagen hydrogel will be used topically on the dorsum of the left foot, the site of superficial excoriations. Compression is to be implemented to the lower extremities by the use of 3M 2 layer compression wraps. These compression wraps will be applied today, and will be changed twice weekly. We are to obtain a noninvasive lower extremity arterial study, to assess arterial circulation in the patient's lower extremities. The patient has recently undergone laboratory studies at the [facility], and effort will be made to obtain these laboratory results. The patient indicates that her blood sugars when checked at home often are as high as 300. Once again, optimization of her glycemic control has been recommended. The patient is to return in 1 week for reassessment. Total time: 50 minutes
[2023-03-24 13:20] VITALS: BP 148/56; PULSE 64; RESP 16; TEMP 36.6; BMI 42.5
--- NOTE | 2023-03-27 13:06 | ART_ITS ---
Reason For Study: Non Healing LLE Wound Procedure A bilateral lower extremity continuous wave Doppler with analog waveform analysis,segmental pressures,and ankle brachial indexes without exercise. Left Segmental Pressures Left brachial= 149mmHg. Left posterior tibial artery = >254mmHg. Left dorsalis pedis artery = 185mmHg. Left digit = 126 mmHg. The left posterior tibial artery waveforms are triphasic. The left dorsalis pedis waveforms are triphasic. Right Segmental Pressures Right brachial= 151mmHg. Right posterior tibial artery = 184mmHg. Right dorsalis pedis artery = 200mmHg. Right digit = 127 mmHg. The right posterior tibial artery waveforms are triphasic. The right dorsalis pedis waveforms are triphasic. Indices The right ankle brachial index by the posterior tibial artery is N/C. The right ankle brachial index by the dorsalis pedis is 1.23. The right digital-brachial index is 0.83. The left ankle brachial index by the posterior tibial artery is 1.22. The left ankle brachial index by the dorsalis pedis is 1.32. The left digital-brachial index is 0.84. VL/Lower Ext Art Exam w/o Exercis Interpretation Summary Triphasic Doppler waveforms are noted at ankle level bilaterally. Pulse-volume recordings appear satisfactory at all levels bilaterally. Resting ankle-brachial indices are norm al bilaterally. Digital-brachial indices are normal bilaterally. There is no evidence of significant arterial occlusive disease in the lower ext remities bilaterally. Ordering Physician: Abdulaziz Pompa Referring Physician: Renetta Loja Performed By: Tani Salinas RVT
[2023-03-28 11:08] VITALS: BP 121/46; PULSE 72; RESP 20; TEMP 36.8; BMI 42.5
--- NOTE | 2023-03-28 11:46 | PCM.WC.HP ---
History of Present Illness Date of Service: 03/28/23 Chief Complaint: Ulceration of the left posterior calf History of Wound: This is a 72-year-old female with multiple pre-existing medical problems. She is obese, with a BMI of 42.5. She is also a poorly controlled diabetic. She is in poor compliance with her diabetic management, and is on insulin and an oral agent. Her other pre-existing medical problems are included herein. Patient presents with an ulceration on the left posterior calf. Etiology is uncertain. It has been present for approximately 2 to 3 months. She also has chronic swelling, edema, and lymphedema in her lower extremities. She has recently been treated with doxycycline for cellulitis in the area. She has a history of pulmonary embolism approximately 10 years ago, and is on systemic anticoagulation therapy using Eliquis. She claims to sleep on a flat mattress at night. She is not very active. Patient's history is negative for myocardial infarction, congestive heart failure, cerebrovascular accident, pulmonary disease, and thyroid disease. REPLACED BY [facility] Medical History Edema of both legs Gallbladder abscess History of pulmonary embolism Hyperlipidemia Hypertension Lower extremity ulceration Lymphedema Morbid obesity with BMI of 40.0-44.9, adult Swelling of left lower extremity Swelling of right lower extremity Home Medications Trulicity 4.5 mg/0.5 mL subcutaneous pen injector (dulaglutide) 4.5 mg (0.5 mL) subcut QWEEK #2 mL 04/27/22 [Rx Last Taken Unknown] insulin aspart U-100 100 unit/mL (3 mL) subcutaneous pen (Novolog FlexPen U-100 Insulin aspart) 1 sliding scale dose subcut USEASDIRECTD 04/27/22 [History Last Taken Unknown] meloxicam 7.5 mg tablet 7.5 mg PO BID 04/27/22 [History Last Taken Unknown] ropinirole 1 mg tablet 2 mg PO PRN restless legs 04/27/22 [History Last Taken Unknown] simvastatin 5 mg tablet 5 mg PO DAILY 04/27/22 [History Last Taken Unknown] spironolactone 50 mg tablet 50 mg PO DAILY 04/27/22 [History Last Taken Unknown] flash glucose scanning reader ([employer]arkedStyle Xena 2 [place]) #1 ea 05/19/22 [Rx Last Taken Unknown] flash glucose sensor (FreeStyle Xena 2 Sensor kit) #2 ea 05/19/22 [Rx Last Taken Unknown] apixaban 2.5 mg tablet (Eliquis) 2.5 mg PO DAILY 03/21/23 [History Last Taken Unknown] bupropion HCl PO DAILY 03/21/23 [History Last Taken Unknown] carvedilol phosphate 10 mg capsule,[id number] multiphase (Coreg CR) 10 mg PO DAILY 03/21/23 [History Last Taken Unknown] duloxetine PO DAILY 03/21/23 [History Last Taken Unknown] levimir PO .c meals diabetes 03/21/23 [History Last Taken Unknown] Allergy/AdvReac Type Severity Reaction Status Date / Time Penicillins Allergy Intermediate Swelling Verified 04/27/22 09:05 hydromorphone [From Dilaudid] AdvReac Severe Other Verified 04/27/22 09:05 acetaminophen [From Vicodin] AdvReac Intermediate Vomiting Verified 04/27/22 09:05 ciprofloxacin [From Cipro] AdvReac Intermediate headache Verified 04/27/22 09:05 hydrocodone [From Vicodin] AdvReac Intermediate Vomiting Verified 04/27/22 09:05 Family History Other Alcohol abuse Arthritis Cancer Diabetes Heart disease Hypertension Surgical History H/O knee surgery H/O tubal ligation History of arthroscopic knee surgery History of left shoulder replacement Previous back surgery Social History Smoking Status: Former smoker alcohol intake: current alcohol intake frequency: 0-2 drinks per day substance use type: does not use what type of physical activity do you participate in: none Vital Signs Vital Signs Vital Signs: 03/28/23 11:08 Temperature 98.2 F Temperature Source Temporal Pulse Rate 72 Respiratory Rate 20 H Blood Pressure 121/46 H Blood Pressure Mean 71 Blood Pressure Source Monitor Blood Pressure Position Sitting Blood Pressure Location Left Forearm Oxygen Delivery Method Room Air Weight Weight: 240 lb 1.75 oz Body Mass Index (BMI) 42.5 Physical Exam Const alert, oriented x3, no apparent distress and well nourished Constitutional Narrative: The patient is morbidly obese, with a BMI of 42.5. General Appearance: cooperative, comfortable, well kempt and well developed Orientation / Consciousness: awake, oriented to person, oriented to place and oriented to time HEENT normocephalic, head/scalp atraumatic and hearing grossly normal bilaterally Head and Scalp: normal to inspection, normocephalic and atraumatic External Ear: external ears normal Eyes PERRL and EOMs intact bilaterally General Eye: normal appearance of both eyes Resp normal respiratory effort, normal air movement, no retractions and no use of accessory muscles Effort and Inspection: able to speak in complete sentences and symmetric chest movement Extremity no calf tenderness General Extremity: Negative for clubbing or cyanosis Skin Wound Narrative: A small ulceration is noted on the left posterior calf. There is no sign of infection or cellulitis. Dimensions are documented elsewhere. There is a small amount of bioburden. Severe swelling, edema, and lymphedema are noted in the patient's lower extremities bilaterally. Superficial excoriations previously noted on the dorsum of the patient's left foot, appear to be healed. Neuro oriented x3, CN's II-XII intact bilaterally and moves all extremities Sensorium / Orientation: awake, alert, oriented to person, oriented to place and oriented to time Psych Appearance: grossly normal and appropriate Attitude: calm Activity / Motor Behavior: appropriate eye contact Speech: normal speech Mood & Affect: euthymic mood Thought Process: normal thought process Thought Content: normal thought content Attention / Concentration: attention grossly intact Debridement Note Debridement Note Wound debrided: Left posterior calf Laterality: Left Type of Debridement: Excisional debridement Anesthesia Used: 5% Lidocaine Gel Depth: Down to and including healthy tissue and in the subcutaneous layer Percentage of wound debrided: 100 Instrument Used: 3mm curette Tissue Removed: Bioburden and nonviable tissue Severity: Fat Layer Exposed Amount of bleeding with debridement: Mild Bleeding Controlled with: Compression and gauze Patient tolerated procedure: Patient tolerated procedure well Post-Debridement Measurements and Additional Note: Post-Debridement Measurements/Treatment HAZEL - Nurse 1 - General Ulcer Assessment Start: 03/21/23 08:59 Freq: Status: Active Protocol: AJ Activity Type Activity Date Activity User E-sign Co-sign Detail Recorded Client Recorded Date Recorded By Document 03/21/23 09:00 DL [id number] 03/21/23 09:26 DL Edit Result 03/21/23 09:00 DL (1) [id number] 03/21/23 09:41 DL Document 03/24/23 13:20 KW [id number] 03/24/23 13:21 KW Document 03/28/23 11:08 MW [id number] 03/28/23 11:14 MW (1) Height => 5 ft 3 in Weight => 240 lb 1.75 oz Weight in Pounds => 240.1 lbs Body Mass Index (BMI) => 42.5 BMI Classification => Obese BSA - Cornelia => 2.09 03/21/23 03/24/23 03/28/23 09:00 13:20 11:08 WC - Today's Visit Information Type of service Initial Visit Nurse-only Follow-up Visit Visit (Physician/APPRAISER TIMBER ) Arrival Mode Ambulatory Ambulatory, Wheelchair Transfer Assistance None None Accompanied by self Patient Identification Verified (Name & Yes Yes Yes ) Patient Requires Transmission-Based No No No Precautions Safety Precautions Fall Prevention Finger Stick Blood Sugar(mg/dl) (if 300 indicated): Blood Sugar Stated by Patient Height and Weight Height 5 ft 3 in Weight 240 lb 1.75 oz Weight in Pounds 240.1 lbs Body Mass Index (BMI) 42.5 42.5 42.5 BMI Classification Obese Obese Obese BSA - Cornelia 2.09 Vital Signs Temperature (97.8 F-99.1 F) 97.4 F L 97.9 F 98.2 F Temperature Source Temporal Temporal Temporal Pulse Rate (60-100) 72 64 72 Pulse Location Monitor Monitor Monitor Respiratory Rate (12-18) 22 H 16 20 H Respiratory rate source Observation Observation Oxygen Delivery Method Room Air Room Air Blood Pressure (90/60-120/80) 103/32 L 148/56 H 121/46 H Blood Pressure Mean 55 86 71 Source Monitor Monitor Monitor Position Semi-Fowlers Sitting Blood Pressure Location Right Arm Left Forearm History Since Last Visit- (Skip if this is Patient's initial visit) Have you changed medications since your No No last visit? Any new allergies or adverse reactions No No Had a fall/change in ADL's that may No No increase risk of falls Signs or symptoms of abuse and/or No No neglect since last visit Have you been in the hospital since your No No last visit? Has dressing in place as prescribed Yes No Has compression in place as prescribed Yes No Has offloadiing in place as prescribed Yes N/A Experienced any changes in pain level or No No management Left Footwear Slipper Slipper Right Footwear Slipper Slipper Pain Scale: 0-10 Numeric Is Patient Pain Free? Yes Yes Yes Lower Extremity Assessment/ Foot Assessment/ Toe Nail Assessment Left -Posterior Tibial Palpable No -Dorsalis Pedis Palpable No -Extremity Color Normal -Hair Growth on Legs No -Hair Growth on Toes No -Temperature of Extremity Warm -Capillary Refill Greater than 3 Seconds -Dependent Rubor Yes -Blanched when Elevated No -Lipodermatosclerosis No -Other Deformity No -Prior Foot Ulcer No -Charcot Joint No -Prior Amputation No -Thick Yes -Discolored Yes -Deformed No -Improper Length & Hygeine Yes Right -Polpliteal Pulses Palpable No -Dorsalis Pedis Palpable No -Extremity Color Normal -Hair Growth on Legs No -Hair Growth on Toes No -Temperature of Extremity Warm -Capillary Refill Greater than 3 Seconds -Dependent Rubor Yes -Blanched when Elevated No -Lipodermatosclerosis No -Other Deformity No -Prior Foot Ulcer No -Charcot Joint No -Prior Amputation No -Thick Yes -Deformed No -Improper Length & Hygeine Yes Neuropathy Assessment Feet - Top Side and Bottom <Entered> (a) Communication Assessment Preferred language Citizen Of [place] Able to Read Yes Able to Write Yes Right Hearing Abillity Normal Left Hearing Abillity Normal Visual Assistive Devices Glasses Teaching Assessment Preferences Verbal,Written, Demonstration Barriers to Learning None Readiness To Learn Fair Willingness to Engage in Self Management Low Activies Readiness to Engage in Self Management Low Activities Anxiety Level Calm Cooperation Cooperative Perception Coherent Interest in Health Problem Uninterested Education Importance Acknowledges Need Smoking Status Former smoker Is Patient Diabetic Yes Functional Assessment Recent Decline in Ability to Perform Denies Any Declines Culture/Latter-Day/Hydrologist Cultural/Latter-Day Needs that may affect No Treatment Plan Would you allow our hospital mop handle assembler to No meet you for the purpose of spiritual/ emotional support? Hydrologist to contact place of zoroastrian No Teaching: Wound Center Discharge Instructions -Person Taught Patient Skin Care -Person Taught Patient *Wound/Skin Impairment -Person Taught Patient *Debridement -Person Taught Patient Dressing Your Wound -Person Taught Patient (a) 1 - + WC - Nurse 1 - General Ulcer Measurement Start: 03/21/23 08:59 Freq: Status: Active Protocol: Activity Type Activity Date Activity User E-sign Co-sign Detail Recorded Client Recorded Date Recorded By Document 03/21/23 09:00 DL [id number] 03/21/23 09:26 DL Document 03/24/23 13:20 KW [id number] 03/24/23 13:21 KW Document 03/28/23 11:08 MW [id number] 03/28/23 11:14 MW 03/21/23 03/24/23 03/28/23 09:00 13:20 11:08 Wound Center Nurse 1 #2 L Calf -Combined with other wound No -Current Size (cm) - Length 0.4 0.3 -Current Size (cm) - Width 0.5 0.3 -Current Size (cm) - Depth 0.3 0.1 -Total Square Cm 0.20 0.09 -Photo Taken Yes No -Epithelialization None Present -Tunneling No -Undermining/Tunneling No -Circular Undermining No -Exudate Amt Medium Medium -Exudate Type Serosanguineous Serosanguineous -Wound Margin Distinct, Distinct, Outline Outline Attached Attached -Granulation Amt Small (1-33%) Small (1-33%) -Granulation Quality [place] N/A -Slough/Fibrin Yes -Necrosis Amt Small (1-33%) Large (67-100%) -Necrotic Tissue Type Adherent Slough Adherent Slough -Structure Exposed N/A None/Limited to Skin Breakdown -Texture (Rachel-wound Skin Appearance) Scarring Assessed Assessed, Excoriation, Localized Edema -Moisture (Rachel-wound Skin Appearance) No Abnormality Assessed No Abnormality, Assessed -Color (Rachel-wound Skin Appearance) Erythema Assessed -Temperature (Rachel-wound Skin No Abnormality No Abnormality Appearance) (Pt Warm) (Pt Warm) -Tenderness on Palpation (Rachel-wound No No Skin Appearance) -Ulcer Cleansing Soap and Water Soap and Water Rinsed/ Irrigated with Saline -Foul Odor after Cleansing No No -Anesthetic Used 5% Lidocaine 5% Lidocaine Gel Gel Lower Limb Edema Present Yes Right Calf (cm) 54 50.0 Right Ankle (cm) 34 33.5 Left Calf (cm) 62 56.5 Left Ankle (cm) 37 36.5 WC - Nurse 2 - General Ulcer CM Notes Start: 03/21/23 08:59 Freq: Status: Active Protocol: Activity Type Activity Date Activity User E-sign Co-sign Detail Recorded Client Recorded Date Recorded By Document 03/21/23 11:44 PL [id number] 03/21/23 11:45 PL 03/21/23 11:44 Wound Center Nurse 2 #2 L Calf -Time 09:42 -Correct Patient Yes -Correct Side, Site, Position Yes -Correct Procedure Yes -Procedure Performed Yes -Type of Procedure Debridement -Clinical Debridement Subcutaneous -Tissue Removed Subcutaneous -Post Debridement (cm) - Length 0.5 -Post Debridement (cm) - Width 0.5 -Post Debridement (cm) - Depth 0.3 -Total Square (Post) (cm) 0.25 -Area of Debridement (cm) - Length 0.5 -Area of Debridement (cm) - Width 0.5 -Total Square (Area) (cm) 0.25 -Tunneling No -Undermining/Tunneling No -Circular Undermining No -Wound/Ulcer Outcome Not Healed -Ulcer Cleansing Rinsed/ Irrigated with Saline -Foul Odor after Cleansing No -Bioengineered Tissue No -Bleeding Controlled with Pressure -Treatment Response Procedure Tolerated Well -Debridement - Subq, 1st 20sq cm Yes Pain Scale: 0-10 Numeric Is Patient Pain Free? Yes WC - Nurse 3 - General Ulcer D/C NN Start: 03/21/23 08:59 Freq: Status: Active Protocol: Activity Type Activity Date Activity User E-sign Co-sign Detail Recorded Client Recorded Date Recorded By Document 03/21/23 06:36 PL [id number] 03/22/23 06:37 Document 03/24/23 13:21 [id number] 03/24/23 13:22 KW Document 03/28/23 11:45 [id number] 03/28/23 11:45 KW 03/21/23 03/24/23 03/28/23 06:36 13:21 11:45 Wound Care Center Nurse 3 #2 L Calf -Ulcer Cleansing Rinsed/ Irrigated with Saline -Primary Dressing Applied Promogran Promogran Promogran -Primary Dressing Covered/Secured with Dry Gauze & Dry Gauze, Roll Gauze, Secured with Secured with Tape Tape -Promogran 1 1 1 Bilateral -Multi-Layered Wrap Application Multi-Layer Multi-Layer Comp - Bilat ($ Comp - Bilat ($ ) ) -Tubular Bandage Single Layer -Size of Tubigrip Used Size E -Size E ($) 1 Pain Scale: 0-10 Numeric Is Patient Pain Free? Yes Yes Yes WC - Visit Discharge Discharge Condition Unstable Stable Ambulatory Status Wheelchair Wheelchair Transportation Private Auto Private Auto Medication Reconcilliation completed & No No provided to patient/care provider Clinical Summary of Care Provided Yes Yes Radiology Impression Extremity Arterial Study 03/27/23 13:06 Interpretation Summary Triphasic Doppler waveforms are noted at ankle level bilaterally. Pulse-volume recordings appear satisfactory at all levels bilaterally. Resting ankle-brachial indices are normal bilaterally. Digital-brachial indices are normal bilaterally. There is no evidence of significant arterial occlusive disease in the lower extremities bilaterally. Ordering Physician: Abdulaziz Pompa Referring Physician: Renetta Loja Performed By: Tani Salinas RVT Assessment/Plan Assessment/Plan (1) Non-healing ulcer of lower leg with fat layer exposed: CODE(S): L97.902 - Non-pressure chronic ulcer of unspecified part of unspecified lower leg with fat layer exposed QUALIFIERS: Laterality: left Qualified Code(s): L97.922 - Non-pressure chronic ulcer of unspecified part of left lower leg with fat layer exposed (2) Lower extremity ulceration: CODE(S): L97.909 - Non-pressure chronic ulcer of unspecified part of unspecified lower leg with unspecified severity (3) Swelling of left lower extremity: CODE(S): M79.89 - Other specified soft tissue disorders (4) Edema of both legs: CODE(S): R60.0 - Localized edema (5) Lymphedema: CODE(S): I89.0 - Lymphedema, not elsewhere classified (6) Peripheral vascular disease: CODE(S): I73.9 - Peripheral vascular disease, unspecified (7) Anticoagulant long-term use: CODE(S): Z79.01 - assisted (current) use of anticoagulants (8) CKD (chronic kidney disease): CODE(S): N18.9 - Chronic kidney disease, unspecified (9) Diabetes mellitus: CODE(S): E11.9 - Type 2 diabetes mellitus without complications (10) Diabetic ulcer of left lower leg: CODE(S): E11.622 - Type 2 diabetes mellitus with other skin ulcer; L97.929 - Non-pressure chronic ulcer of unspecified part of left lower leg with unspecified severity (11) Morbid obesity with BMI of 40.0-44.9, adult: CODE(S): E66.01 - Morbid (severe) obesity due to excess calories; Z68.41 - Body mass index [BMI] 40.0-44.9, adult (12) Hypertension: CODE(S): I10 - Essential (primary) hypertension (13) Hyperlipidemia: CODE(S): E78.5 - Hyperlipidemia, unspecified (14) History of pulmonary embolism: CODE(S): Z86.711 - Personal history of pulmonary embolism (15) Swelling of right lower extremity: CODE(S): M79.89 - Other specified soft tissue disorders PLAN: Plan This is a 72-year-old obese diabetic female who presented with an ulceration on the left posterior calf, which had been present for over 1 month. The patient was also noted to have chronic swelling, edema, and lymphedema in her lower extremities. She claims to sleep on a flat mattress at night. She is relatively inactive. She has a history of pulmonary embolism approximately 10 years ago. The patient has been advised to implement conservative treatment measures relative to the swelling and edema in her lower extremities. She is to continue sleeping on a flat mattress at night. She is to elevate her lower extremities even during daytime hours. Elevation is to be to heart level, or higher, is much as possible. Prolonged idle sitting has been discouraged. Activity has been encouraged. Weight loss has been also recommended. Nutritional optimization has been recommended. The patient has been also advised to optimize her glycemic control. We are to continue the use of Promogran topically to the ulceration on the left posterior calf. Compression is to be implemented to the lower extremities by means of Tubigrip's of 20 to 30 mmHg compression. These are to be worn from the time of arising each morning until bedtime. A noninvasive lower extremity arterial study has been performed on March 27, 2023, which revealed no evidence of significant arterial occlusive disease. The patient indicates that her blood sugars when checked at home often are as high as 300. Once again, optimization of her glycemic control has been recommended. The patient is to return in 1 week for reassessment. Total time: 25 minutes
--- NOTE | 2023-03-28 12:40 | WC ---
Patient was seen at wound clinic by Dr. Pompa and attempting to ambulate to her van. She C/O feeling very dizzy and headache. Noted unsteady gait. Assisted her to a chair in lobby. Vital signs checked at 1220 Temp 97.3, BP right arm 78/46, BP left arm 73/46, pulse 71, SpO2 98%, blood sugar 94. Patient stated her blood sugar was over 300 this AM. She took her insulin but did not eat or drink. Given a glucerna, drank 100% without difficulty. Porfirio Rojas RN nurse sales floor manager and Dr. Pompa notified of patient condition. Abbyad called per Nilam Mason desk operator to transport to [facility] ER for evaluation.
[2023-03-31 10:43] LABS: Bedside Glucose 94 mg/dL (74-106)
== END 2023-04-10 23:59 | disposition home or self-care (01) ==
LOC: WC 10:30
PROVIDERS: PCP Family Medicine; Referring Provider Family Medicine; Visit Provider Surgery
DX: E11.622 Type 2 diabetes mellitus with other skin ulcer (principal); E11.51 Type 2 diabetes mellitus with diabetic peripheral angiopathy without gangrene; L97.222 Non-pressure chronic ulcer of left calf with fat layer exposed; E11.40 Type 2 diabetes mellitus with diabetic neuropathy, unspecified; E11.22 Type 2 diabetes mellitus with diabetic chronic kidney disease; Z68.41 Body mass index [BMI] 40.0-44.9, adult; E66.01 Morbid (severe) obesity due to excess calories; Z79.4 Long term (current) use of insulin; I89.0 Lymphedema, not elsewhere classified; R60.0 Localized edema; I12.9 Hypertensive chronic kidney disease with stage 1 through stage 4 chronic kidney disease, or unspecified chronic kidney disease; N18.9 Chronic kidney disease, unspecified; E78.5 Hyperlipidemia, unspecified; Z87.891 Personal history of nicotine dependence; Z86.711 Personal history of pulmonary embolism; Z79.01 Long term (current) use of anticoagulants; Z79.899 Other long term (current) drug therapy
CPT/HCPCS: 11042; 29581; 82962; 93923; 99213; G0463

== ENCOUNTER 2023-03-28 12:52 | Emergency (ER) | payer MEDICARE, SELFPAY ==
[2023-03-28] VITALS (7 sets, daily range): BP systolic 68–129; BP diastolic 41–75; PULSE 56–85; RESP 10–21; TEMP 36.1–36.6; O2SAT 96–99; BMI 42.4
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
--- NOTE | 2023-03-28 13:20 | EDS_ITS ---
HPI History of Present Illness Chief Complaint: Syncope Narrative Narrative: 72-year-old female with multiple medical problems including nonhealing ulcer of left lower extremity, diabetes, history of pulmonary embolism on anticoagulation presents with near syncope from the wound care center. She states she is being seen for the wound on her leg that is not healing. When she went to stand up, she was told by the RN that she looked pale and looked like she was going to pass out. She may have felt lightheaded but denies any chest pain or shortness of breath. They sent her to the emergency department for evaluation and EMS noticed that she was hypotensive. She denies any recent nausea or vomiting, no diarrhea, no fevers or chills, no cough. However, she thinks that she may have taken her antihypertensive medication twice today. She states that she keeps her medications in a basket, and removes them one by one. She was unsure if she took her carvedilol already, so she took another dose. She was able to drive to the wound care center, and states that she did not have problems until she stood up. She denies any dysuria or hematuria, no other symptoms. [facility] Medical History Edema of both legs Gallbladder abscess History of pulmonary embolism Hyperlipidemia Hypertension Lower extremity ulceration Lymphedema Morbid obesity with BMI of 40.0-44.9, adult Swelling of left lower extremity Swelling of right lower extremity Home Medications Trulicity 4.5 mg/0.5 mL subcutaneous pen injector (dulaglutide) 4.5 mg (0.5 mL) subcut QWEEK #2 mL 04/27/22 [Rx Last Taken Unknown] insulin aspart U-100 100 unit/mL (3 mL) subcutaneous pen (Novolog FlexPen U-100 Insulin aspart) 1 sliding scale dose subcut USEASDIRECTD 04/27/22 [History Last Taken Unknown] meloxicam 7.5 mg tablet 7.5 mg PO BID 04/27/22 [History Last Taken Unknown] ropinirole 1 mg tablet 2 mg PO PRN restless legs 04/27/22 [History Last Taken Unknown] simvastatin 5 mg tablet 5 mg PO DAILY 04/27/22 [History Last Taken Unknown] spironolactone 50 mg tablet 50 mg PO DAILY 04/27/22 [History Last Taken Unknown] flash glucose scanning reader (FreeStyle Xena 2 Talmage) #1 ea 05/19/22 [Rx Last Taken Unknown] flash glucose sensor (FreeStyle Xena 2 Sensor kit) #2 ea 05/19/22 [Rx Last Taken Unknown] apixaban 2.5 mg tablet (Eliquis) 2.5 mg PO DAILY 03/21/23 [History Last Taken Unknown] bupropion HCl PO DAILY 03/21/23 [History Last Taken Unknown] carvedilol phosphate 10 mg capsule,[id number] multiphase (Coreg CR) 10 mg PO DAILY 03/21/23 [History Last Taken Unknown] duloxetine PO DAILY 03/21/23 [History Last Taken Unknown] levimir PO .c meals diabetes 03/21/23 [History Last Taken Unknown] cephalexin 500 mg capsule 500 mg PO BID #12 caps 03/28/23 [Rx Last Taken Unknown] Allergy/AdvReac Type Severity Reaction Status Date / Time Penicillins Allergy Intermediate Swelling Verified 03/28/23 12:57 hydromorphone [From Dilaudid] AdvReac Severe Other Verified 03/28/23 12:57 acetaminophen [From Vicodin] AdvReac Intermediate Vomiting Verified 03/28/23 12:57 ciprofloxacin [From Cipro] AdvReac Intermediate headache Verified 03/28/23 12:57 hydrocodone [From Vicodin] AdvReac Intermediate Vomiting Verified 03/28/23 12:57 Family History Other Alcohol abuse Arthritis Cancer Diabetes Heart disease Hypertension Surgical History H/O knee surgery H/O tubal ligation History of arthroscopic knee surgery History of left shoulder replacement Previous back surgery Social History Smoking Status: Former smoker alcohol intake: current alcohol intake frequency: 0-2 drinks per day substance use type: does not use what type of physical activity do you participate in: none ROS ROS ED ROS Narrative Constitutional: No fever, no chills. HEENT: No sore throat. No neck pain. No loss of vision. No rhinorrhea. Cardiovascular: No chest pain. No palpitations. No pedal edema. Respiratory: No cough, no shortness of breath. Abdominal: No abdominal pain. No nausea. No vomiting. Genitourinary: No dysuria. No hematuria. Musculoskeletal: No myalgias. No arthralgias. Neurologic: No headaches. No dizziness. Positive lightheadedness and near syncope. Skin: No rash. No change in color. Chronic leg ulceration being seen at wound care center. Psychiatric: No depression. No anxiety. EXAM Physical Exam Narrative Exam Narrative: Afebrile. Vital signs noted. HEENT: Normocephalic. Atraumatic. PERRL, EOMI. Neck soft and supple. No point tenderness or step off. Cardiovascular: Regular rate and rhythm. No murmurs, rubs, or gallops appreciated. Respiratory: No tachypnea. Lungs clear to auscultation bilaterally. Gastrointestinal: Abdomen soft, nontender, with normoactive bowel sounds. No rebound or guarding. Neurological: Awake. Alert. Nonfocal, nonlateralizing. Skin: No rash. Normal color. No pallor. Musculoskeletal: Bilateral symmetric pedal edema. Bilateral leg wraps. Full range of motion extremities. Const Vital Signs: 03/28/23 12:53 03/28/23 12:56 03/28/23 13:30 Temperature 96.9 F L 97.9 F Temperature Source Temporal Temporal Pulse Rate 74 66 56 L Respiratory Rate 18 18 10 L Blood Pressure 101/56 L 101/56 L 68/41 L Blood Pressure Mean 71 71 48 Pulse Ox 96 99 Oxygen Delivery Method Room Air Room Air 03/28/23 13:45 03/28/23 14:00 Temperature Temperature Source Pulse Rate 69 85 Respiratory Rate 11 L 16 Blood Pressure 100/52 L 116/75 Blood Pressure Mean 66 88 Pulse Ox 99 97 Oxygen Delivery Method MDM MDM MDM Narrative Medical decision making narrative: Patient has soft blood pressure here with systolic blood pressure at 96. Initia lly her blood pressure was 101/56 upon arrival. I reviewed the EMS report which shows that she was hypotensive in the 70s and 80s. I do feel that she may be hypotensive secondary to accidental overdose of her medication. I have less concern for sepsis as she is not febrile or tachycardic and relates no history of source of infection. She will be bolused normal saline. However, she did state that she has been having frequent falls secondary to her sciatica. She falls at home, and that she fell at [employer]. She did states that she has struck her head recently and she is on Eliquis for pulmonary emboli and DVTs. While she does not have a headache, I do feel that given her age and the fact that she is on anticoagulation that CT of the brain should be performed. Additionally, I feel that she merits laboratory work including lactic acid to see if her hypotension has been persistent. Currently she is not meeting other SIRS criteria. EKG was obtained and interpreted by myself independently as sinus rhythm with first-degree AV block at 72 bpm without ectopy or acute ST changes. No STEMI. I reviewed her radiology report and her brain CT shows chronic involutional changes of the brain, no acute hemorrhage. I do not feel that chest x-ray is indicated as she has no clinical signs of a pneumonia, no shortness of breath. I reviewed her laboratory work and she has slightly elevated white count of 13.0 which I think is nonspecific, hemoglobin stable at 11.6, hematocrit 36.1, normal platelet count of 252. Her potassium is slightly elevated at 5.4. There were no EKG changes or I think she requires calcium chloride or Kayexalate. She has a BUN of 40 and a creatinine slightly elevated at 1.93 consistent with her chronic kidney disease. High-sensitivity troponin is 13. No feel she requires serial enzymes. Her urinalysis shows 50-100 WBCs but she is not having dysuria. She will be treated with cephalexin and given her first dose here in the emergency department. She states that she has taken cephalexin previously and tolerated it. Additionally she states she is on another antibiotic for the wound on her leg. I do feel this would provide double coverage. Although her blood sugar is slightly low at 65, she will be given oral food. She was able to sit up and ambulate to the bedside commode without any dizziness or near syncope. At this point in time, I do feel she can be discharged safely home with follow-up. Although she said that she has had frequent falls, she feels it is secondary to her sciatica, and she does not want to be placed in rehab or s [facility] nursing facility. She would like to be discharged. I do feel she can be discharged safely home with follow-up. Return instructions to the emergency department were reviewed. Disposition is discharged home in stable condition. History & Record Review Discussion w/independent historian: Patient Additional record(s) reviewed:: Prior ED visit and Prior labs Lab Data Labs: Laboratory Results - last 24 hr 03/28/23 03/28/23 12:44 13:41 WBC 13.0 H RBC 3.87 L Hgb 11.6 L Hct 36.1 L MCV 93.3 MCH 30.0 MCHC 32.1 RDW Std Deviation 45.1 H RDW Coeff of Norma 13.2 Plt Count 252 MPV 10.2 Immature Gran % (Auto) 0.300 Neut % (Auto) 78.3 H Lymph % (Auto) 12.5 L [place] % (Auto) 7.6 Eos % (Auto) 0.8 Baso % (Auto) 0.5 Absolute Neuts (auto) 10.2 H Absolute Lymphs (auto) 1.63 Nucleated RBC % 0 Sodium 139 Potassium 5.4 H Chloride 110 H Carbon Dioxide 23.0 Anion Gap 6 BUN 40 H Creatinine 1.93 H Estim Creat Clear Calc 22.44 Est GFR (MDRD) Af Amer 33 L Est GFR (MDRD) Non-Af 27 L BUN/Creatinine Ratio 20.7 H Glucose 65 L Lactic Acid 1.9 Calcium 9.4 Total Bilirubin 0.60 AST 16 ALT 22 Alkaline Phosphatase 95 Troponin I High Sens 13 Total Protein 6.8 Albumin 3.3 Globulin 3.5 Albumin/Globulin Ratio 0.9 Urine Color Yellow Urine Clarity Sl. Cloudy Urine pH 5.0 Ur Specific [place] 1.020 Urine Protein 15 H Urine Glucose (UA) 1000 H Urine Ketones 5 H Urine Occult Blood 10 H Urine Nitrite Negative Urine Bilirubin Negative Urine Urobilinogen Normal Ur Leukocyte Esterase 500 H Urine RBC 0 SEEN Urine WBC 50-100 SEEN Ur Squamous Epith Cells 0 SEEN Urine Bacteria 0 SEEN Urine Mucus 0 SEEN Urine Yeast 2+ Radiography Diagnostic Testing: Clinical Impression(s) from Imaging Studies Brain CT 03/28/23 13:18 IMPRESSION: Chronic involutional changes of the brain. No acute hemorrhage Electronically Signed: Cesar Avila MD at 14:09 EDT , Discharge Plan Triage Chief Complaint: Syncope ED Provider: Carlos Gill Dx/Rx/DC Orders Clinical Impression: Transient hypotension, Near syncope Instructions: ED Low Blood Pressure, All Causes, ED Near-Fainting, Uncertain Cause Prescriptions: New cephalexin 500 mg capsule 500 mg PO BID Qty: 12 0RF No Action spironolactone 50 mg tablet 50 mg PO DAILY meloxicam 7.5 mg tablet 7.5 mg PO BID insulin aspart U-100 [Novolog FlexPen U-100 Insulin] 100 unit/mL (3 mL) insulin pen 1 sliding scale dose subcut USEASDIRECTD ropinirole 1 mg tablet 2 mg PO PRN (Reason: restless legs) simvastatin 5 mg tablet 5 mg PO DAILY Trulicity 4.5 mg/0.5 mL pen injector 4.5 mg subcut QWEEK Qty: 2 5RF Eliquis 2.5 mg tablet 2.5 mg PO DAILY levimir PO .c meals duloxetine [Cymbalta] PO DAILY Patient Comments: 90 mg bupropion HCl [Wellbutrin XL] PO DAILY carvedilol phosphate [Coreg CR] 10 mg capsule, ER multiphase 24 hr 10 mg PO DAILY Rx Instructions: must administer with a meal/food (DME) FreeStyle Xena 2 Talmage Misc See Rx Instructions .Route Qty: 1 0RF Rx Instructions: testing blood sugar 4-5x/day (DME) FreeStyle Xena 2 Sensor Kit See Rx Instructions .Route Qty: 2 5RF Rx Instructions: testing bgl 4-5x/day Primary Care Provider: Renetta Loja Referrals: Renetta Loja MD [Primary Care Provider] - 3-5 Days if not improving Disposition Disposition: Home, Self Care
--- NOTE | 2023-03-28 13:21 | NURSING ---
NO OLD EKGS
[2023-03-28 13:37] LABS: Absolute Lymphocyte Count 1.63 X10^3/uL (0.83-4.51); Absolute Neutrophil Count 10.2 X10^3/uL (2.0-7.7); Basophil# 0.07 X10^3/uL; Basophil% 0.5 % (0-1); Eosinophil# 0.11 X10^3/uL; Eosinophils% 0.8 % (0-5); Hematocrit 36.1 % (37-47); Hemoglobin 11.6 g/dL (12.0-15.0); Lymphocyte # 1.63 X10^3/ul (0.83-4.51); Lymphocyte % 12.5 % (19-41); Mean Corp Hgb Conc 32.1 g/dL (32-36); Mean Corpuscular Volume 93.3 fL (81-99); Mean Platelet Vol. 10.2 fl (6.2-12.0); Monocyte# 0.99 X10^3/uL; Monocyte% 7.6 % (0-10); NRBC Flagged by Analyzer 0 % (0-5); Neutrophil # 10.18 X10^3/uL (2.7-7.7); Neutrophil % 78.3 % (47-70); Platelet Count 252 K/mm3 (150-450); RBC Distribution Width CV 13.2 % (11.6-14.6); RBC Distribution Width SD 45.1 fl (35.1-43.9); Red Blood Count 3.87 M/mm3 (4.2-5.4)
[2023-03-28] MEDS: 0.9% Normal Saline 1,000 ML 1000 ML IV (13:43)
[2023-03-28 13:46] LABS: Bacteria 0 SEEN /hpf (None Seen); Mucous, Urine 0 SEEN /hpf (<or=2+); Red Blood Cells-Urine 0 SEEN /hpf (0-5); Squamous Epithelial Cells - UA 0 SEEN /hpf (5-10)
[2023-03-28 13:50] LABS: Color, Urine Yellow (Yellow); Glucose, Dipstick 1000 mg/dl (Normal); Ketone-Dipstick 5 mg/dl (Negative); Leukocyte Esterase-Dipstick 500 /ul (Negative); Nitrite-Dipstick Negative (Negative); Occult Blood-Urine 10 /ul (Negative); Protein-Dipstick 15 mg/dl (Negative); Urine Bilirubin Dipstick Negative (Negative); Urine Clarity Sl. Cloudy (Clear); Urine Urobilinogen Normal (Normal)
[2023-03-28 13:57] LABS: White Blood Cells 50-100 SEEN /hpf (0-5)
[2023-03-28 13:58] LABS: Lactic Acid 1.9 mmol/L (0.4-1.9)
[2023-03-28 13:58] LABS: Yeast-Urine 2+ /hpf (None Seen)
[2023-03-28 13:59] LABS: ALB/GLOB Ratio 0.9 RATIO (0.9-2.4); AST(SGOT) 16 U/L (15-37); Alanine Aminotransfer ALT/SGPT 22 U/L (13-56); Albumin, Serum 3.3 g/dL (3.2-5.0); Alkaline Phosphatase 95 U/L (45-117); Anion Gap 6 (5-15); BUN 40 mg/dL (7-18); BUN/Creat Ratio 20.7 RATIO (10-20); Calcium,Total 9.4 mg/dL (8.5-10.1); Chloride 110 mmol/L (98-107); Creatinine, Serum 1.93 mg/dL (0.55-1.02); EST Glomerular Filtration Rate 27 mL/min (>60); Est Glom Filt Rate - Afr Amer 33 mL/min (>60); Estimated Creatinine Clearance 22.44 ml/min; Globulin 3.5 g/dL (2.2-4.2); Glucose 65 mg/dL (74-106); Potassium 5.4 mmol/L (3.5-5.1); Protein, Total 6.8 g/dL (6.4-8.2); Sodium Level 139 mmol/L (136-145); Troponin-I HS 13 pg/mL (3.0-54.0)
[2023-03-28] MEDS: Cephalexin 250 MG Capsule 500 MG PO (14:41)
[2023-03-28 15:13] LABS: Bedside Glucose 145 mg/dL (74-106)
== END 2023-03-28 14:56 | disposition home or self-care (01) ==
PROVIDERS: Emergency Provider Emergency Medicine; PCP Family Medicine; Visit Provider Emergency Medicine
DX: I95.9 Hypotension, unspecified (principal); E11.622 Type 2 diabetes mellitus with other skin ulcer; E11.51 Type 2 diabetes mellitus with diabetic peripheral angiopathy without gangrene; L97.222 Non-pressure chronic ulcer of left calf with fat layer exposed; E11.40 Type 2 diabetes mellitus with diabetic neuropathy, unspecified; E11.22 Type 2 diabetes mellitus with diabetic chronic kidney disease; E66.01 Morbid (severe) obesity due to excess calories; Z68.41 Body mass index [BMI] 40.0-44.9, adult; Z79.4 Long term (current) use of insulin; E78.5 Hyperlipidemia, unspecified; R29.6 Repeated falls; I89.0 Lymphedema, not elsewhere classified; I12.9 Hypertensive chronic kidney disease with stage 1 through stage 4 chronic kidney disease, or unspecified chronic kidney disease; N18.9 Chronic kidney disease, unspecified; Z79.01 Long term (current) use of anticoagulants; Z79.85 Long-term (current) use of injectable non-insulin antidiabetic drugs; Z79.899 Other long term (current) drug therapy; Z86.711 Personal history of pulmonary embolism; Z87.891 Personal history of nicotine dependence
CPT/HCPCS: 11042; 70450; 80053; 81001; 82962; 83605; 84484; 85025; 87086; 87088; 93005; 96360; 99285

== ENCOUNTER 2023-04-11 11:01 | Outpatient (RCR) | payer MEDICARE, SELFPAY ==
[2023-04-11 00:27] VITALS: BP 121/46; PULSE 72; RESP 20; TEMP 36.8; BMI 42.5
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
[2023-04-12 07:01] LABS: Bedside Glucose 388 mg/dL (74-106)
== END 2023-05-11 23:59 | disposition home or self-care (01) ==
LOC: WC 11:01
PROVIDERS: PCP Family Medicine; Referring Provider Family Medicine; Visit Provider Surgery
DX: Z09 Encounter for follow-up examination after completed treatment for conditions other than malignant neoplasm (principal)
CPT/HCPCS: 82962

== ENCOUNTER 2023-04-11 11:49 | Emergency (ER) | payer MEDICARE, SELFPAY ==
[2023-04-11 11:50] VITALS: BP 104/63; PULSE 62; RESP 12; TEMP 36.6; O2SAT 99; BMI 51.3
[2023-04-11 11:54] VITALS: BP 104/63; PULSE 62; RESP 14; TEMP 36.6; O2SAT 100
[2023-04-11 13:00] VITALS: BP 123/78; PULSE 57; RESP 14; TEMP 36.4; O2SAT 97; O2SAT 99
[2023-04-11] MEDS: levoFLOXacin IV 750 MG/150 ML BAG 100 MG IV (13:42)
[2023-04-11 14:01] LABS: Absolute Lymphocyte Count 1.34 X10^3/uL (0.83-4.51); Basophil# 0.05 X10^3/uL; Basophil% 0.5 % (0-1); Eosinophil# 0.32 X10^3/uL; Eosinophils% 3.4 % (0-5); Hemoglobin 10.2 g/dL (12.0-15.0); Lymphocyte # 1.34 X10^3/ul (0.83-4.51); Lymphocyte % 14.2 % (19-41); Mean Corp Hgb Conc 30.9 g/dL (32-36); Mean Corpuscular Hgb 28.7 pg (27.0-32.0); Mean Platelet Vol. 10.9 fl (6.2-12.0); Monocyte# 0.62 X10^3/uL; Monocyte% 6.6 % (0-10); NRBC Flagged by Analyzer 0 % (0-5); Neutrophil # 7.03 X10^3/uL (2.7-7.7); Neutrophil % 74.6 % (47-70); Platelet Count 294 K/mm3 (150-450); RBC Distribution Width CV 12.7 % (11.6-14.6); RBC Distribution Width SD 43.8 fl (35.1-43.9); Red Blood Count 3.55 M/mm3 (4.2-5.4); White Blood Count 9.4 K/mm3 (4.4-11.0)
[2023-04-11 14:03] LABS: Anion Gap 5 (5-15); BUN 27 mg/dL (7-18); BUN/Creat Ratio 16.8 RATIO (10-20); Calcium,Total 9.1 mg/dL (8.5-10.1); Chloride 106 mmol/L (98-107); Creatinine, Serum 1.61 mg/dL (0.55-1.02); EST Glomerular Filtration Rate 34 mL/min (>60); Est Glom Filt Rate - Afr Amer 41 mL/min (>60); Glucose 434 mg/dL (74-106); Potassium 4.7 mmol/L (3.5-5.1); Sodium Level 134 mmol/L (136-145)
[2023-04-11 14:07] LABS: Lactic Acid 1.3 mmol/L (0.4-1.9)
[2023-04-11 14:12] VITALS: BP 109/59; PULSE 72; RESP 13; TEMP 36.3; O2SAT 96
[2023-04-11 14:16] LABS: International Normalized Ratio 1.1; Prothrombin Time (Protime)PT. 13.8 SECONDS (11.7-14.9)
[2023-04-11 14:17] LABS: Partial Thromboplast Time 28.5 Seconds (24.1-36.2)
--- NOTE | 2023-04-11 15:01 | EDS_ITS ---
HPI History of Present Illness HPI Narrative: Patient presents with redness and swelling to her left leg. Patient was at the wound care center and had a low blood pressure. Wound care center called EMS and the patient was brought to the emergency department. Patient denies any fevers or chills. Patient states she has a chronic wound to the posterior aspect of her left lower leg. Patient describes her pain as dull. Patient states it is worse with palpation. Patient denies any discharge or drainage. Patient has been on antibiotics for this in the past. Chief Complaint: Wound Onset/Context/Timing Context: Gradual Onset Timing: Continuous Quality of Pain: Dull Location: Left calf Worsened by: Palpation Relieved by: Nothing Associated Symptoms Associated Symptoms: Negative for Parasthesia, Weakness or Loss of Funtion PFSH [facility] Medical History Edema of both legs Gallbladder abscess History of pulmonary embolism Hyperlipidemia Hypertension Lower extremity ulceration Lymphedema Morbid obesity with BMI of 40.0-44.9, adult Swelling of left lower extremity Swelling of right lower extremity Home Medications insulin aspart U-100 100 unit/mL (3 mL) subcutaneous pen (Novolog FlexPen U-100 Insulin aspart) 10 unit subcut .COMPLEX 04/27/22 [History Last Taken Unknown] meloxicam 7.5 mg tablet 7.5 mg PO BID 04/27/22 [History Last Taken Unknown] ropinirole 1 mg tablet 2 mg PO PRN restless legs 04/27/22 [History Last Taken Unknown] simvastatin 5 mg tablet 5 mg PO DAILY 04/27/22 [History Last Taken Unknown] spironolactone 50 mg tablet 50 mg PO DAILY 04/27/22 [History Last Taken Unknown] flash glucose scanning reader (FreeStyle Xena 2 [place]arrison) #1 ea 05/19/22 [Rx Last Taken Unknown] flash glucose sensor (FreeStyle Xena 2 Sensor kit) #2 ea 05/19/22 [Rx Last Taken Unknown] apixaban 2.5 mg tablet (Eliquis) 2.5 mg PO DAILY 03/21/23 [History Last Taken Unknown] bupropion HCl PO DAILY 03/21/23 [History Last Taken Unknown] carvedilol phosphate 10 mg capsule,[id number] multiphase (Coreg CR) 10 mg PO DAILY 03/21/23 [History Last Taken Unknown] duloxetine PO DAILY 03/21/23 [History Last Taken Unknown] levimir 20 unit subcut .hs diabetes 03/21/23 [History Last Taken Unknown] cephalexin 500 mg capsule 500 mg PO BID #12 caps 03/28/23 [Rx Last Taken Unknown] doxycycline hyclate 100 mg capsule 100 mg PO Q12H 03/28/23 [History Last Taken Unknown] dulaglutide 4.5 mg/0.5 mL subcutaneous pen injector (Trulicity) 0.75 mg subcut QWEEK 03/28/23 [History Last Taken Unknown] levofloxacin 750 mg tablet 750 mg PO DAILY #7 tabs 04/11/23 [Rx Last Taken Unknown] Allergy/AdvReac Type Severity Reaction Status Date / Time Penicillins Allergy Intermediate Swelling Verified 04/11/23 11:55 hydromorphone [From Dilaudid] AdvReac Severe Other Verified 04/11/23 11:55 sitagliptin [From Januvia] AdvReac Severe HEADACHE Verified 04/11/23 11:55 acetaminophen [From Vicodin] AdvReac Intermediate Vomiting Verified 04/11/23 11:55 ciprofloxacin [From Cipro] AdvReac Intermediate headache Verified 04/11/23 11:55 hydrocodone [From Vicodin] AdvReac Intermediate Vomiting Verified 04/11/23 11:55 Family History Other Alcohol abuse Arthritis Cancer Diabetes Heart disease Hypertension Surgical History H/O knee surgery H/O tubal ligation History of arthroscopic knee surgery History of left shoulder replacement Previous back surgery Social History Smoking Status: Former smoker alcohol intake: current alcohol intake frequency: 0-2 drinks per day substance use type: does not use what type of physical activity do you participate in: none ROS ROS ED Constitutional Constitutional ED: Denies chills or fever(s) Eyes Eyes: Denies blurry vision or change in vision ENT ENT ED: Denies rhinorrhea or sore throat Cardiovascular Cardiovascular: Denies chest pain or palpitations Respiratory/Chest Respiratory/Chest: Denies cough or dyspnea Gastrointestinal Gastrointestinal: Denies nausea or vomiting Genitourinary Genitourinary ED: Reports dysuria and urinary frequency; Denies hematuria Musculoskeletal Musculoskeletal: Reports back pain; Denies neck pain Integumentary Denies abscess or rash Neurologic Neurologic: Reports headache(s); Denies weakness Allergic/Immunologic Allergic/Immunologic ED: Denies mouth swelling or urticaria EXAM Physical Exam Const Vital Signs: 04/11/23 11:50 04/11/23 11:54 04/11/23 13:00 Temperature 97.8 F 97.9 F 97.5 F L Temperature Source Oral Oral Temporal Pulse Rate 62 62 57 L Respiratory Rate 12 14 14 Blood Pressure 104/63 104/63 123/78 H Blood Pressure Mean 76 76 93 Pulse Ox 99 100 97 Oxygen Delivery Method Room Air Room Air Room Air 04/11/23 13:00 04/11/23 14:12 Temperature 97.3 F L Temperature Source Temporal Pulse Rate 57 L 72 Respiratory Rate 14 13 Blood Pressure 123/78 H 109/59 L Blood Pressure Mean 93 75 Pulse Ox 99 96 Oxygen Delivery Method Room Air Room Air Positive well nourished, well developed and obese General Appearance ED: well developed and NAD Nutritional Appearance: obese HEENT Reports moist mucous membranes Resp normal respiratory effort and clear to auscultation bilaterally Cardio regular rate and regular rhythm Extremity Extremity Narrative: There is bilateral pitting edema of the lower extremities. There is some erythema and warmth over the posterior aspect of the left lower leg. There is no discharge or drainage. There is a very superficial ulceration of the posterior aspect of the left lower leg. Pedal pulses are equal bilaterally. Capillary refill was less than 2 seconds in all digits. There is good range of motion. There is no laxity appreciated. Strength is 5/5 bilaterally in the lower extremities. There are no sensory deficits noted. Neuro oriented x3, CN's II-XII intact bilaterally, moves all extremities and no sensory deficits noted Sensorium / Orientation: alert Motor Exam: strength 5/5 throughout Psych mental status grossly normal MDM MDM MDM Narrative Medical decision making narrative: Differential diagnosis includes cellulitis, sepsis, chronic wound ulcer, and peripheral edema. CBC will be obtained to assess for leukocytosis and anemia. PT was INR and PTT will be obtained to assess for coagulopathy. Lactate will be obtained to assess for sepsis. Basic metabolic profile will be obtained to assess for electrolyte abnormality and renal function. Blood cultures will be obtained to assess for sepsis. Lab Data Attestation: I reviewed the patient's lab results. Lab results narrative: CBC was reviewed. There is a mild anemia with a hemoglobin of 10.2 and hematocrit 33.0. PT with INR and PTT were reviewed and were within normal limits. Basic metabolic profile was reviewed. BUN was 27 and creatinine was 1.61. These are consistent with prior results. Glucose was elevated at 434. Anion gap was normal. CO2 was normal. Serum lactate was reviewed and was normal at 1.3. Labs: Laboratory Results - last 24 hr 04/11/23 13:15 WBC 9.4 RBC 3.55 L Hgb 10.2 L Hct 33.0 L MCV 93.0 MCH 28.7 MCHC 30.9 L RDW Std Deviation 43.8 RDW Coeff of Norma 12.7 Plt Count 294 MPV 10.9 Immature Gran % (Auto) 0.700 Neut % (Auto) 74.6 H Lymph % (Auto) 14.2 L [place] % (Auto) 6.6 Eos % (Auto) 3.4 Baso % (Auto) 0.5 Absolute Neuts (auto) 7.0 Absolute Lymphs (auto) 1.34 Nucleated RBC % 0 PT 13.8 INR 1.1 APTT 28.5 Sodium 134 L Potassium 4.7 Chloride 106 Carbon Dioxide 23.0 Anion Gap 5 BUN 27 H Creatinine 1.61 H Estim Creat Clear Calc 26.90 Est GFR (MDRD) Af Amer 41 L Est GFR (MDRD) Non-Af 34 L BUN/Creatinine Ratio 16.8 Glucose 434 H Lactic Acid 1.3 Calcium 9.1 Treatment and Re-Evaluation Narrative: Patient was started on Levaquin due to her penicillin allergy. Patient was advised of her findings. Patient's blood pressure remained stable here in the emergency department. Patient was given a prescription for Levaquin. Patient was instructed to keep the wound clean and dry. Patient was instructed to follow-up with wound care center in 5 to 7 days. Patient understood and was agreeable with the plan. All questions were answered. Discharge Plan Triage Chief Complaint: Wound ED Provider: Eliel Hale Dx/Rx/DC Orders Clinical Impression: Cellulitis of left lower leg, Diabetes mellitus, Diabetic ulcer of left lower leg, CKD (chronic kidney disease), Morbid obesity with BMI of 40.0-44.9, adult Instructions: ED Cellulitis, ED Wound Care Prescriptions: New levofloxacin 750 mg tablet 750 mg PO DAILY Qty: 7 0RF No Action spironolactone 50 mg tablet 50 mg PO DAILY meloxicam 7.5 mg tablet 7.5 mg PO BID insulin aspart U-100 [Novolog FlexPen U-100 Insulin] 100 unit/mL (3 mL) insulin pen 10 unit subcut .COMPLEX Rx Instructions: 10 units subcutaneously plus sliding scale; ropinirole 1 mg tablet 2 mg PO PRN (Reason: restless legs) simvastatin 5 mg tablet 5 mg PO DAILY cephalexin 500 mg capsule 500 mg PO BID Qty: 12 0RF Trulicity 4.5 mg/0.5 mL pen injector 0.75 mg subcut QWEEK doxycycline hyclate 100 mg capsule 100 mg PO Q12H Patient Comments: Take 1 capsule by mouth 2 times a day for 10 days. Take with at least 8 ounces (large glass) of water, do not lie down for 30 minutes after Eliquis 2.5 mg tablet 2.5 mg PO DAILY Hold Instructions: Ordered levimir 20 unit subcut .hs duloxetine [Cymbalta] PO DAILY Patient Comments: 90 mg bupropion HCl [Wellbutrin XL] PO DAILY carvedilol phosphate [Coreg CR] 10 mg capsule, ER multiphase 24 hr 10 mg PO DAILY Rx Instructions: must administer with a meal/food (DME) FreeStyle Xena 2 [place] Misc See Rx Instructions .Route Qty: 1 0RF Rx Instructions: testing blood sugar 4-5x/day (DME) FreeStyle Xena 2 Sensor Kit See Rx Instructions .Route Qty: 2 5RF Rx Instructions: testing bgl 4-5x/day Primary Care Provider: Renetta Loja Referrals: Renetta Loja MD [Primary Care Provider] - 5-7 Days Wound,Center [Non-Staff] - 3-5 Days Disposition Disposition: Home, Self Care
[2023-04-11 15:52] VITALS: BP 142/80; PULSE 80; RESP 16
== END 2023-04-11 15:54 | disposition home or self-care (01) ==
PROVIDERS: Emergency Provider Emergency Medicine; PCP Family Medicine; Visit Provider Emergency Medicine
DX: L03.116 Cellulitis of left lower limb (principal); E11.622 Type 2 diabetes mellitus with other skin ulcer; E11.51 Type 2 diabetes mellitus with diabetic peripheral angiopathy without gangrene; L97.222 Non-pressure chronic ulcer of left calf with fat layer exposed; E11.22 Type 2 diabetes mellitus with diabetic chronic kidney disease; E11.65 Type 2 diabetes mellitus with hyperglycemia; E11.40 Type 2 diabetes mellitus with diabetic neuropathy, unspecified; E66.01 Morbid (severe) obesity due to excess calories; Z68.41 Body mass index [BMI] 40.0-44.9, adult; Z79.4 Long term (current) use of insulin; I12.9 Hypertensive chronic kidney disease with stage 1 through stage 4 chronic kidney disease, or unspecified chronic kidney disease; N18.9 Chronic kidney disease, unspecified; E78.5 Hyperlipidemia, unspecified; I89.0 Lymphedema, not elsewhere classified; Z79.85 Long-term (current) use of injectable non-insulin antidiabetic drugs; Z79.01 Long term (current) use of anticoagulants; Z79.899 Other long term (current) drug therapy; Z86.711 Personal history of pulmonary embolism; Z87.891 Personal history of nicotine dependence
CPT/HCPCS: 80048; 82962; 83605; 85025; 85610; 85730; 87040; 96365; 99284

== ENCOUNTER 2023-12-18 15:10 | Emergency (ER) | payer OTHER, SELFPAY ==
[2023-12-18 15:10] VITALS: BP 130/87; PULSE 72; RESP 18; TEMP 36.4; O2SAT 96; BMI 40.8
--- NOTE | 2023-12-18 15:22 | EKG12_ITS ---
Test Reason : GENERAL Blood Pressure : / mmHG Vent. Rate : 065 BPM Atrial Rate : 065 BPM P-R Int : 216 ms QRS Dur : 112 ms QT Int : 428 ms P-R-T Axes : 106 -19 009 degrees QTc Int : 445 ms Sinus rhythm with 1st degree A-V block with frequent Premature ventricular complexes Moderate voltage criteria for LVH, may be normal variant ( R in aVL , Brennen product ) Borderline ECG Confirmed by Balwinder Maynard ([id number]), editor house organ TERESE THURSTON ([id number]) on 12/20/2023 5:43:41 AM Referred By: Confirmed By:Balwinder Maynard
--- NOTE | 2023-12-18 15:29 | EX.ED.DYSGE1 ---
HPI History of Present Illness Chief Complaint: Hypoglycemia Narrative Narrative: 73-year-old female presenting with hyperglycemia. Blood sugar is in the 40s on arrival. Sliding scale NovoLog which has not changed. Patient also states she is on Lantus 20 units nightly. Patient is also on Trulicity 0.75 mg q. weekly. None of these medications have changed. She states that she had not eaten anything since 3 AM this morning. She states she never eats lunch or breakfast. Does not usually have low blood sugars. Denies any chest pain or shortness of breath. Patient does report that she has felt cough and congestion since . She thought she might of had a fever on . She has not been tested for anything. Still has a mild cough and mild congestion. Fevers have resolved. She feels otherwise well. is [facility] Medical History Edema of both legs Gallbladder abscess History of pulmonary embolism Hyperlipidemia Hypertension Lower extremity ulceration Lymphedema Morbid obesity with BMI of 40.0-44.9, adult Swelling of left lower extremity Swelling of right lower extremity Home Medications insulin aspart U-100 100 unit/mL (3 mL) subcutaneous pen (Novolog FlexPen U-100 Insulin aspart) 10 unit subcut .COMPLEX 04/27/22 [History Last Taken Unknown] meloxicam 7.5 mg tablet 7.5 mg PO BID 04/27/22 [History Last Taken Unknown] ropinirole 1 mg tablet 2 mg PO PRN restless legs 04/27/22 [History Last Taken Unknown] simvastatin 5 mg tablet 5 mg PO DAILY 04/27/22 [History Last Taken Unknown] spironolactone 50 mg tablet 50 mg PO DAILY 04/27/22 [History Last Taken Unknown] flash glucose scanning reader (FreeStyle Xena 2 [place]) #1 ea 05/19/22 [Rx Last Taken Unknown] flash glucose sensor (FreeStyle Xena 2 Sensor kit) #2 ea 05/19/22 [Rx Last Taken Unknown] apixaban 2.5 mg tablet (Eliquis) 2.5 mg PO DAILY 03/21/23 [History Last Taken Unknown] bupropion HCl PO DAILY 03/21/23 [History Last Taken Unknown] carvedilol phosphate 10 mg capsule,[id number] multiphase (Coreg CR) 10 mg PO DAILY 03/21/23 [History Last Taken Unknown] duloxetine PO DAILY 03/21/23 [History Last Taken Unknown] levimir 20 unit subcut .hs diabetes 03/21/23 [History Last Taken Unknown] cephalexin 500 mg capsule 500 mg PO BID #12 caps 03/28/23 [Rx Last Taken Unknown] doxycycline hyclate 100 mg capsule 100 mg PO Q12H 03/28/23 [History Last Taken Unknown] dulaglutide 4.5 mg/0.5 mL subcutaneous pen injector (Trulicity) 0.75 mg subcut QWEEK 03/28/23 [History Last Taken Unknown] levofloxacin 750 mg tablet 750 mg PO DAILY #7 tabs 04/11/23 [Rx Last Taken Unknown] Allergy/AdvReac Type Severity Reaction Status Date / Time Penicillins Allergy Intermediate Swelling Verified 11/01/23 14:13 hydromorphone [From Dilaudid] AdvReac Severe Other Verified 11/01/23 14:13 sitagliptin [From Januvia] AdvReac Severe HEADACHE Verified 11/01/23 14:13 acetaminophen [From Vicodin] AdvReac Intermediate Vomiting Verified 11/01/23 14:13 ciprofloxacin [From Cipro] AdvReac Intermediate headache Verified 11/01/23 14:13 hydrocodone [From Vicodin] AdvReac Intermediate Vomiting Verified 11/01/23 14:13 Family History Other Alcohol abuse Arthritis Cancer Diabetes Heart disease Hypertension Surgical History H/O knee surgery H/O tubal ligation History of arthroscopic knee surgery History of left shoulder replacement Previous back surgery Social History Smoking Status: Former smoker alcohol intake: current alcohol intake frequency: 0-2 drinks per day substance use type: does not use what type of physical activity do you participate in: none ROS ROS ED Constitutional Constitutional ED: Reports fever(s); Denies chills or sweats Eyes Eyes: Denies blurry vision or change in vision ENT ENT ED: Reports rhinorrhea; Denies ear pain or sore throat Cardiovascular Cardiovascular: Denies chest pain, palpitations or racing heartbeat Respiratory/Chest Respiratory/Chest: Reports cough; Denies dyspnea or sputum Gastrointestinal Gastrointestinal: Denies abdominal pain, constipation, diarrhea, nausea or vomiting Genitourinary Genitourinary ED: Denies dysuria, hematuria or urinary frequency Musculoskeletal Musculoskeletal: Denies arthralgias, myalgias or neck pain Integumentary Denies abscess, Abrasions or rash Neurologic Neurologic: Denies headache(s), paresthesias or weakness Psychiatric Psychiatric: Denies anxiety, depression, suicidal ideation or suicidal thoughts Endocrine Endocrinology: Denies polydipsia or polyuria EXAM Physical Exam Const Vital Signs: 12/18/23 15:10 12/18/23 15:10 12/18/23 17:10 Temperature 97.6 F L Temperature Source Temporal Pulse Rate 72 84 Respiratory Rate 18 18 Respiratory Pattern Normal Blood Pressure 130/87 H 144/77 H Blood Pressure Mean 101 99 Pulse Ox 96 96 Oxygen Delivery Method Room Air Room Air Positive well nourished General Appearance ED: NAD; Negative for pallor HEENT Reports moist mucous membranes Eyes PERRL and EOMs intact bilaterally Chest Wall inspection of chest normal Resp normal respiratory effort and clear to auscultation bilaterally Auscultation: Negative for rales, rhonchi or wheezes Cardio regular rate and regular rhythm GI normal to inspection, nondistended, normoactive bowel sounds Neuro oriented x3 and CN's II-XII intact bilaterally Sensorium / Orientation: alert Motor Exam: strength 5/5 throughout Psych mental status grossly normal Skin no rashes or lesions noted General Skin Exam: Negative for jaundice or pallor MDM MDM MDM Narrative Medical decision making narrative: Patient presenting hypoglycemia. She was given glucose and D10 prior to arrival. She is awake and alert. She admits she has not eaten breakfast or lunch today. She has not any food since 3 AM. Patient's medications have not changed and she does not usually get hypoglycemic. Other than this she states she has had a cough and mild congestion since . She states that it is improving and she had a fever she thought but did not check it. Differential includes COVID, RSV, influenza, pneumonia, dehydration, anemia, electrolyte maladies, hypoglycemia. CBC will be obtained to assess white blood cell count, hemoglobin, platelets. BMP to assess renal function and electrolytes, glucose. Patient will be given IV fluids. EKG will be obtained to assess for dysrhythmia. Chest x-ray will be obtained to rule out pneumonia. We discussed viral testing however she is outside the treatment window for COVID or influenza so we will hold off on this. Chest x-ray will be obtained to rule out pneumonia. CBC shows normal white blood cell count of 10.6. Hemoglobin 12.0. Platelets are normal at 308. Renal function normal with a creatinine 0.9. GFR 66. High-sensitivity troponin is 15. EKG on my interpretation shows a normal sinus rhythm with a ventricular to 65 bpm with first-degree AV block. No evidence of ischemia. Chest x-ray on my interpretation shows no acute process. Radiology interprets this and agrees. Patient was able to eat a meal and repeat blood sugar is 200. At this point I feel she stable for discharge. Patient counseled she needs to eat food when she is taking her insulin medications at home. Return precautions discussed. Impression: 1. Hypoglycemia 2. History of diabetes Lab Data Attestation: I reviewed the patient's lab results. Labs: Laboratory Results - last 24 hr 12/18/23 15:52 WBC 10.6 RBC 4.36 Hgb 12.0 Hct 39.3 MCV 90.1 MCH 27.5 MCHC 30.5 L RDW Std Deviation 46.2 H RDW Coeff of Norma 13.9 Plt Count 308 MPV 9.7 Immature Gran % (Auto) 0.200 Neut % (Auto) 76.8 H Lymph % (Auto) 12.9 L [place] % (Auto) 8.0 Eos % (Auto) 1.4 Baso % (Auto) 0.7 Absolute Neuts (auto) 8.2 H Absolute Lymphs (auto) 1.37 Nucleated RBC % 0 Sodium 140 Potassium 4.0 Chloride 104 Carbon Dioxide 31.0 Anion Gap 5 BUN 23 H Creatinine 0.90 Estim Creat Clear Calc 66.33 Est GFR (MDRD) Af Amer 79 Est GFR (MDRD) Non-Af 66 BUN/Creatinine Ratio 25.5 H Glucose 67 L Calcium 9.2 Troponin I High Sens 15 Radiography Diagnostic Testing: Clinical Impression(s) from Imaging Studies Chest X-Ray 12/18/23 15:50 IMPRESSION: No definite acute or significant abnormality seen. Electronically Signed: Job Ballard MD at 16:35 EDT , Discharge Plan Triage Chief Complaint: Hypoglycemia ED Provider: Wiliam Ott Dx/Rx/DC Orders Instructions: ED Diabetic Insulin Reaction Prescriptions: No Action spironolactone 50 mg tablet 50 mg PO DAILY meloxicam 7.5 mg tablet 7.5 mg PO BID insulin aspart U-100 [Novolog FlexPen U-100 Insulin] 100 unit/mL (3 mL) insulin pen 10 unit subcut .COMPLEX Rx Instructions: 10 units subcutaneously plus sliding scale; ropinirole 1 mg tablet 2 mg PO PRN (Reason: restless legs) simvastatin 5 mg tablet 5 mg PO DAILY cephalexin 500 mg capsule 500 mg PO BID Qty: 12 0RF Trulicity 4.5 mg/0.5 mL pen injector 0.75 mg subcut QWEEK doxycycline hyclate 100 mg capsule 100 mg PO Q12H Patient Comments: Take 1 capsule by mouth 2 times a day for 10 days. Take with at least 8 ounces (large glass) of water, do not lie down for 30 minutes after levofloxacin 750 mg tablet 750 mg PO DAILY Qty: 7 0RF Eliquis 2.5 mg tablet 2.5 mg PO DAILY Hold Instructions: Ordered levimir 20 unit subcut .hs duloxetine [Cymbalta] PO DAILY Patient Comments: 90 mg bupropion HCl [Wellbutrin XL] PO DAILY carvedilol phosphate [Coreg CR] 10 mg capsule, ER multiphase 24 hr 10 mg PO DAILY Rx Instructions: must administer with a meal/food (DME) FreeStyle Xena 2 [place] Misc See Rx Instructions .Route Qty: 1 0RF Rx Instructions: testing blood sugar 4-5x/day (DME) FreeStyle Xena 2 Sensor Kit See Rx Instructions .Route Qty: 2 5RF Rx Instructions: testing bgl 4-5x/day Primary Care Provider: Rubi May Referrals: Rbui May MD [Primary Care Provider] - Disposition Disposition: Home, Self Care
--- NOTE | 2023-12-18 15:50 | RAD_ITS ---
STUDY: X-RAY CHEST REASON FOR EXAM: Female, 73 years old. cough TECHNIQUE: Single AP portable view of the chest. COMPARISON: None. FINDINGS: The lungs are clear and expanded. There is no demonstrated pleural abnormality. Normal size heart. Normal mediastinum and chuy. Normal visualized pulmonary arteries. There is atherosclerotic tortuosity of the aortic arch and descending thoracic aorta. Normal visualized thoracic spine. Normal visualized ribs, clavicles, and shoulders. There is no demonstrated abnormality of the visualized soft tissue structures of the upper abdomen. RAD/Chest 1 View (Portable) IMPRESSION: No definite acute or significant abnormality seen. Electronically Signed: Job Ballard MD at 16:35 EDT ,
[2023-12-18 15:59] LABS: Absolute Lymphocyte Count 1.37 X10^3/uL (0.83-4.51); Absolute Neutrophil Count 8.2 X10^3/uL (2.0-7.7); Basophil# 0.07 X10^3/uL; Basophil% 0.7 % (0-1); Eosinophil# 0.15 X10^3/uL; Eosinophils% 1.4 % (0-5); Hematocrit 39.3 % (37-47); Lymphocyte # 1.37 X10^3/ul (0.83-4.51); Lymphocyte % 12.9 % (19-41); Mean Corp Hgb Conc 30.5 g/dL (32-36); Mean Corpuscular Hgb 27.5 pg (27.0-32.0); Mean Corpuscular Volume 90.1 fL (81-99); Mean Platelet Vol. 9.7 fl (6.2-12.0); Monocyte# 0.85 X10^3/uL; NRBC Flagged by Analyzer 0 % (0-5); Neutrophil # 8.17 X10^3/uL (2.7-7.7); Neutrophil % 76.8 % (47-70); Platelet Count 308 K/mm3 (150-450); RBC Distribution Width CV 13.9 % (11.6-14.6); RBC Distribution Width SD 46.2 fl (35.1-43.9); Red Blood Count 4.36 M/mm3 (4.2-5.4); White Blood Count 10.6 K/mm3 (4.4-11.0)
[2023-12-18] MEDS: 0.9% Normal Saline (500mL Bag) 500 ML 999 ML IV (16:15)
[2023-12-18 16:16] LABS: Anion Gap 5 (5-15); BUN 23 mg/dL (7-18); BUN/Creat Ratio 25.5 RATIO (10-20); Calcium,Total 9.2 mg/dL (8.5-10.1); Chloride 104 mmol/L (98-107); EST Glomerular Filtration Rate 66 mL/min (>60); Est Glom Filt Rate - Afr Amer 79 mL/min (>60); Estimated Creatinine Clearance 66.33 ml/min; Glucose 67 mg/dL (74-106); Sodium Level 140 mmol/L (136-145); Troponin-I HS 15 pg/mL (3.0-54.0)
[2023-12-18 17:10] VITALS: BP 144/77; PULSE 84; RESP 18; O2SAT 96
[2023-12-18 18:15] VITALS: BP 215/105; PULSE 69; RESP 19; O2SAT 98
[2023-12-18 18:17] VITALS: BP 198/85; PULSE 70; RESP 18; TEMP 36.8; O2SAT 98
--- NOTE | 2023-12-18 18:19 | ED.RN ---
pt hypertensive upon discharge. dr. moran aware. pt missed dose of BP medication today and will take at home.
[2023-12-18 18:26] LABS: Bedside Glucose 200 mg/dL (74-106)
== END 2023-12-18 18:36 | disposition home or self-care (01) ==
PROVIDERS: Emergency Provider Student in an Organized Health Care Education/Training Program; PCP Family Medicine Sports Medicine; Visit Provider Student in an Organized Health Care Education/Training Program
DX: E11.649 Type 2 diabetes mellitus with hypoglycemia without coma (principal); Z87.891 Personal history of nicotine dependence
CPT/HCPCS: 71045; 80048; 82962; 84484; 85025; 93005; 96360; 99283; J7040; A4216

== ENCOUNTER 2024-06-26 14:15 | Emergency (ER) | payer MEDICARE, SELFPAY ==
[2024-06-26 14:16] VITALS: BP 132/68; PULSE 60; RESP 12; TEMP 36.8; O2SAT 97; BMI 39.0
--- NOTE | 2024-06-26 14:59 | CT_ITS ---
INDICATION: head trauma on eliquis EXAMINATION: CT BRAIN - CT Head or Brain W/O Contrast Injection TECHNIQUE: Multiple axial images were obtained of the head without intravenous contrast. The protocol utilizes one or more of the following dose reduction techniques: automated exposure control, adjustment of mA and/or kV according to patient size,and/or use of iterative reconstruction technique. IV Contrast dosage and agent: None. RADIATION DOSAGE (If Supplied By Facility): CTDIvol = ( 44.99 ) mGy, DLP = ( 779.24 ) mGycm COMPARISON: Prior study dated: 03/28/2023 FINDINGS: BRAIN: No acute bleed. No edema. Toribio-white matter differentiation is maintained. VENTRICLES AND SULCI: Not dilated. EXTRA-AXIAL: No hemorrhage, fluid collection, or mass. CALVARIUM / SKULL BASE: Unremarkable. FACE/SINUSES: Unremarkable. SOFT TISSUES: Soft tissue swelling in the left frontoparietal scalp. CT/Brain/Head without Contrast IMPRESSION: Scalp contusion. No evidence of acute intracranial injury. Electronically Signed: Salina Appiah MD at 15:52 EDT ,
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
[2024-06-26 16:16] VITALS: BP 144/80; PULSE 74; RESP 18; O2SAT 95
[2024-06-26] MEDS: Lidocaine 1% (20 ml mdv) 20 ML Vial 10 ML INFILT (17:21)
[2024-06-26 17:22] VITALS: BP 110/59; PULSE 70; RESP 17; TEMP 37.1; O2SAT 99
== END 2024-06-26 17:28 | disposition home or self-care (01) ==
PROVIDERS: Emergency Provider Emergency Medicine; PCP Family Medicine Sports Medicine; Visit Provider Emergency Medicine
DX: S01.81XA Laceration without foreign body of other part of head, initial encounter (principal); E11.9 Type 2 diabetes mellitus without complications; Z79.4 Long term (current) use of insulin; S60.221A Contusion of right hand, initial encounter; V47.5XXA Car driver injured in collision with fixed or stationary object in traffic accident, initial encounter; I10 Essential (primary) hypertension; E78.5 Hyperlipidemia, unspecified; Z79.01 Long term (current) use of anticoagulants; Z79.85 Long-term (current) use of injectable non-insulin antidiabetic drugs; Z79.899 Other long term (current) drug therapy; Z86.711 Personal history of pulmonary embolism; Z87.891 Personal history of nicotine dependence
CPT/HCPCS: 12011; 70450; 73130; 99283